=== PATIENT | female | born 1960 | race African-American/Black ===

== ENCOUNTER 2019-10-12 06:48 | Inpatient (IN) | payer MEDICARE ==
[2019-10-12] VITALS (31 sets, daily range): BP systolic 116–154; BP diastolic 65–93; BMI 28.7
[~2019-10-12] VITALS: Ht 160 cm; Wt 73.3 kg
--- NOTE | ~2019-10-12 | HEMODYNAMI ---
PATIENT:ABILIO NELSON MEDICAL RECORD: [id number] : 56 [facility] DATE: 10/12/19 Generatedon:10/13/201912:28 Patient name: ABILIO NELSON Patient #: [id number] SSN: : 1960 Date of study: 10/13/2019 Page: Of Hemodynamic Procedure Report Patient Data Patient Demographics Procedure consent was obtained First Name: ABILIO Gender: Female Last Name: OMAR : 1960 Patient #: [id number] Age: 58 year(s) Race: Black Additional ID: [id number] Contact details Address: [address] State: [facility] Zip code: [address] Past Medical History Allergies: No known allergies Admission Admission Data Admission Date: 10/12/2019 Admission Time: 7:46 Arrival Date: 10/12/2019 Arrival Time: 0:00 Admit Source: Emergency department Room #: D.08 Height (in.): 62.99 BSA: 1.81 (m2) Height (cm.): 160 BMI: 30.47 (kg/m2) Weight (lbs.): 171.96 Weight (kg.): 78 Lab Results Lab Result Date: 10/13/2019 Lab Result Time: 0:00 Biochemistry Name Units Result Min Max BUN mg/dl 8 --(*---)-- 7 18 Creatinine mg/dl 1 --(--*-)-- 0.6 1.3 eGFR ml/min 60 *-(----)-- 90 120 NONAFRICAN CBC Name Units Result Min Max Hematocrit % 38.2 *-(----)-- 42 54 Hemoglobin g/dl 12 *-(----)-- 13.5 17.5 Procedure Procedure Types Cath Procedure Diagnostic Procedure LHC LHC w/Coronaries Procedure Description Procedure Date Procedure Date: 10/13/2019 Procedure Start Time: 12:16 Procedure End Time: 12:27 Procedure Staff Name Function Demond Cherry MD Performing Physician Renetta Montilla RT Monitor Nadia Lopez RT Monitor Reyna Villagomez RN Nurse Keron Holden RT Scrub Indication NSTEMI Procedure Data Cath Procedure Fluoroscopy Diagnostic fluoroscopy Total fluoroscopy Time: 0.8 time: 0.8 min min Diagnostic fluoroscopy Total fluoroscopy dose: 463 dose: 463 mGy mGy Contrast Material Contrast Material Type Amount (ml) Isovue 300 60 Entry Location Entry Primary Successful Side Size Upsize Upsize Entry Closure Succes sful Closure Location (Fr) 1 (Fr) 2 (Fr) Remarks Device Remarks Femoral Left 5 Fr Exoseal artery Estimated blood loss: 5 ml Diagnostic catheters Device Type Used For End Catheter Placement MULTIPACK Pigtail 5 Fr Procedure catheter MULTIPACK JL 4.0 5Fr Procedure catheter MULTIPACK 3DRC 5Fr Procedure catheter Procedure Complications No complications Procedure Medications Medication Administration Route Dosage Oxygen etCO2 Nasal cannula 2 l/min Lidocaine 2% added to field 20 0.9% NaCl I.V. 100 ml/hr Heparin Flush Bag added to field 2 bags (1000units/500ml NS) Versed I.V. 2 mg Fentanyl I.V. 50 mcg Versed I.V. 1 mg Fentanyl I.V. 25 mcg Versed I.V. 0.5 mg Hemodynamics Rest BSA: 1.81 (m2) HGB: 12 (g/dl) O2 Consumption: Estimated: 189.23 (ml/min) O2 Cons umption indexed: Estimated:104.55 (ml/min/m) Heart Rate: 97 (bpm) Snapshots Pre Cath Intra NCS Post Cath Vital Signs Time Heart Resp SPO2 etCO2 NIBP (mmHg) Rhythm Pain Sedation Rate (ipm) (%) (mmHg) Status Level (bpm) 11:53:37 102 22 94 25.4 No Cuff NSR 0 (11) 10(A) , No pain 11:57:27 98 23 94 20.9 160/105(131) NSR 0 (11) 10(A) , No pain 12:01:49 93 23 94 25.4 164/103(133) NSR 0 (11) 10(A) , No pain 12:06:09 89 20 94 25.4 156/104(129) NSR 0 (11) 10(A) , No pain 12:10:25 85 21 96 0 149/97(136) NSR 0 (11) 10(A) , No pain 12:14:37 85 19 96 0 149/93(129) NSR 0 (11) 9(A) , No pain 12:18:51 83 20 95 0 145/96(125) NSR 0 (11) 9(A) , No pain 12:23:05 85 18 96 0 147/90(125) NSR 0 (11) 10(A) , No pain 12:27:05 0 No Cuff NSR 0 (11) 10(A) , No pain Medications Time Medication Route Dose Verified Delivered Reason Notes Eff ectiveness by by 12:03:23 Oxygen etCO2 2 Demond Bryantie used for Nasal l/min Dilip Villagomez RN procedure cannula 12:03:29 Lidocaine 2% added 20ml Demond Demond for local to vial Dilip Cherry MD anesthetic field 12:04:01 0.9% NaCl I.V. 100 Demond Bryantie used for ml/hr Dilip Villagomez RN procedure 12:06:22 Heparin Flush added 2 Demond Buffie used for Bag to bags Dilip Villagomez RN procedure (1000units/500ml field NS) 12:14:00 Versed I.V. 2 mg Demond Orellana for Dilip Villagomez RN sedation 12:14:32 Fentanyl I.V. 50 Demond Bryantie for mcg Dilip Villagomez RN sedation 12:17:23 Versed I.V. 1 mg Demond Orellana for Dilip Villagomez RN sedation 12:17:27 Fentanyl I.V. 25 Demond Orellana for mcg Dilip Villagomez RN sedation 12:21:33 Versed I.V. 0.5 Demond Bryantie for mg Dilip Villagomez RN sedation Procedure Log Time Note 11:37:26 Admit Source: Emergency department 11:38:16 Procedure Status Urgent Heart Cath (IP). 11:38:20 Keron TAVERAS(R) sent for patient. Start room use. 11:39:09 H&P Date Dictated: 10/13/2019 Within 30 days and on chart.. 11:39:17 Patient allergic to No known allergies 11:40:05 Lab Result : BUN 8 mg/dl 11:40:05 Lab Result : Creatinine 1 mg/dl 11:40:05 Lab Result : eGFR NONAFRICAN 60 ml/min 11:40:05 Lab Result : Hemoglobin 12 g/dl 11:40:05 Lab Result : Hematocrit 38.2 % 11:42:11 Stress Test: no; N/A NSTEMI 11:42:19 Risk of Mortality: 2.1 11:42:23 Risk of blood transfusion: 11.8 11:42:28 Risk of MOISÉS: 16.6 11:42:59 Indication : NSTEMI 11:43:23 Informed consent obtained and on chart 11:45:12 Patient Weight : 171.96 lbs 11:45:15 Patient Height : 62.99 inches 11:45:28 Arrival Date: 10/12/2019 12:00:00 AM 11:45:41 Diagnostic Cath Status : Urgent 11:45:42 PCI Cath Status : Urgent 11:48:09 Patient received from CVICU to CCL 1 Alert and oriented. Tansferred to table in Supine position. 11:48:12 Warm blankets applied, and magdy hugger turned on for patient comfort. 11:48:13 Correct patient and procedure confirmed by team. 11:48:14 ECG and BP/O2 sat monitors applied to patient. 11:52:47 Vital chart was started 11:52:50 Full Disclosure recording started 11:52:56 Pre-procedure instructions explained to patient. 11:52:57 Pre-op teaching completed and patient verbalized understanding. 11:52:59 Family in waiting room. 11:53:02 Patient NPO since Midnight. 11:53:05 Is the patient allergic to Iodine/contrast media? No. 11:53:06 Was the patient premedicated? Yes 11:53:07 Is patient on blood thinner?Yes 11:53:11 ACC The patient was administered the following blood thiners within the last 24 hours: ACCPlavix 11:53:13 Patient diabetic? No. 11:53:16 If diabetic: On Metformin? N/A 11:53:23 Patient not . Patient is over age 55. 11:53:28 Previous problem with sedation/anesthesia? No ? 11:53:30 Snore? No 11:53:32 Sleep apnea? No 11:53:34 Deviated septum? No 11:53:35 Opens mouth fully? Yes 11:53:36 Sticks out tongue? Yes 11:53:38 Airway obstruction? No ? 11:53:44 Dentures? No NONE 11:55:14 Pre procedure: right dorsailis pedis pulse 2+ Normal; easily identifiable; not easily obliterated 11:55:30 Patient pain scale 0/10 ?. 11:55:37 IV patent on arrival in right hand with 0.9% NaCl at [facility]. 11:55:45 Lab results completed and on chart. 11:55:50 Left groin area was prepped with chlora-prep and draped in sterile fashion 11:55:52 Alarms reviewed by R. N. 11:55:53 Sharps counted by scrub and verified by R.N. 11:56:29 Baseline sample Acquired. 11:56:36 Time tracking: Regular hours (M-F 7:00 - 5:00) 11:56:47 Plan of Care:Hemodynamics will remain stable., Cardiac rhythm will remain stable., Comfort level will be maintained., Respiratory function will remain adequate., Patient/ family verbilizes understanding of procedure., Procedure tolerated without complication., Recovers from procedure without complications.. 11:57:02 Use device set Femoral Dx 11:57:07 ACIST Syringe (15183) opened to sterile field. 11:57:09 Bag Decanter (2002S) opened to sterile field. 11:57:10 Medline Cath Pack ([id number]) opened to sterile field. 11:57:15 ACIST Hand Control (58015) opened to sterile field. 11:57:16 ACIST Manifold (95901) opened to sterile field. 11:57:17 Tegaderm 4 x 4 (1626W) opened to sterile field. 11:57:20 EMERALD Guide Wire (241-703) opened to sterile field. 11:57:21 SHEATH 5FR [place] (UIX543) opened to sterile field. 11:59:32 Rhythm: sinus rhythm 12:00:45 DIAGNOSTIC Multipack 5Fr catheter set ([id number]) opened to sterile field. 12:03:23 Oxygen 2 l/min etCO2 Nasal cannula was administered by Reyna Villagomez RN; used for procedure; Verbal order read back and verified. 12:03:29 Lidocaine 2% 20ml vial added to field was administered by Demond Cherry MD; for local anesthetic; Verbal order read back and verified. 12:04:01 0.9% NaCl 100 ml/hr I.V. was administered by Reyna Villagomez RN; used for procedure; Verbal order read back and verified. 12:04:19 PT IV IS IN RT HAND AND PT REQUESTED NOT TO GO RT GROIN DUE TO HIP PAIN WILL USE LT HIP INSTEAD. 12:06:22 Heparin Flush Bag (1000units/500ml NS) 2 bags added to field was administered by Reyna Villagomez RN; used for procedure; Verbal order read back and verified. 12:07:13 Zero performed for pressure channel P1 12:07:26 Zero performed for pressure channel P1 12:: --------ALL STOP TIME OUT------ 12:13:14 Final Timeout: patient, procedure, and site verified with staff and physician. All members of the team are in agreement. 12:13:16 Left groin site verified by team. 12:13:20 Fire Safety Assessment: A--An alcohol-based skin anteseptic being used preoperatively., C--Open oxygen or nitrous oxide is being used., D--An ESU, laser, or fiber-optic light is being used. 12:13:26 Physical assessment completed. ASA score P 2 - A patient with mild systemic disease as per Demond Cherry MD. 12:13:32 2) 60-89 Mildly reduced kidney function, and other findings (as for stage 1) point to kidney disease. 12:13:36 Maximum allowable contrast dose (3.7 X eGFR X 0.75)167 ml. 12:13:42 Sedation plan: IV Moderate Sedation Medication:Versed, Fentanyl 12:14:00 Versed 2 mg I.V. was administered by Reyna Villagomez RN; for sedation; Verbal order read back and verified. 12:14:32 Fentanyl 50 mcg I.V. was administered by Reyna Villagomez RN; for sedation; Verbal order read back and verified. 12:16:01 Procedure started. 12:16:53 Local anesthetic to left femerol artery with Lidocaine 2% by Demond Cherry MD.INITIAL ACCESS ONLY 12:17:23 Versed 1 mg I.V. was administered by Reyna Villagomez RN; for sedation; Verbal order read back and verified. 12:17:27 Fentanyl 25 mcg I.V. was administered by Reyna Villagomez RN; for sedation; Verbal order read back and verified. 12:17:46 A MULTIPACK Pigtail 5 Fr catheter was advanced over the wire and used for Procedure. 12:17:56 LV gram done using CHINO 12:18:08 Injector settings: Ml/sec: 10, Volume: 20, 12:18:14 EF : 40 % 12:18:22 Catheter exchanged over wire. 12:18:31 A MULTIPACK JL 4.0 5Fr catheter was advanced over the wire and used for Procedure. 12:19:14 LCA angiography performed. 12:19:49 Catheter removed. 12:19:55 A MULTIPACK 3DRC 5Fr catheter was advanced over the wire and used for Procedure. 12:20:16 RCA angiography performed. 12:20:45 Catheter removed. 12:21:00 EXOSEAL 5Fr (EX500) opened to sterile field. 12::18 A 5 Fr sheath was inserted into the Left Femoral artery 12::18 Sheath removed intact; hemostasis achieved with Exoseal to the Left Femoral artery. 12::33 Versed 0.5 mg I.V. was administered by Reyna Villagomez RN; for sedation; Verbal order read back and verified. 12:21:43 Procedure ended.(Physican Out) 12::19 ACCDominant side:Co-Dominant 12::33 Fluoroscopy time 00.80 minutes. 12::45 Flurop Dose total: 463 12::45 Fluoroscopy dose: 463 mGy 12:22:52 Dose Area Product 69055 mGy/cm. 12:22:56 Contrast amount:Isovue 300 60ml. 12::59 Maximum allowable dose exceeded? No. 12:23:00 Sharps counted by scrub and verified by R.N. 12:23:11 Post Procedure Pulses reassessed and unchanged 12:23:15 Post procedure: right dorsailis pedis pulse 2+ Normal; easily identifiable; not easily obliterated. 12:23:20 Post-procedure physical assessment completed. ASA score P 2 - A patient with mild systemic disease as per Demond Cherry MD. 12:23:23 Post procedure rhythm: unchanged. 12:23:26 Estimated blood loss: 5 ml 12:23:29 Post procedure instruction explained to patient.Patient verbalizes understanding. 12:23:31 Patient needs reinforcement of post procedure teaching. 12:23:58 Procedure and supply charges have been captured, reviewed, submitted and are correct. 12:26:30 Procedure Complication : No complications 12:26:32 Vital chart was stopped 12:26:34 [facility] Findings: MVD- CABG consult 12:26:37 Operative report dictated upon procedure completion. 12:26:38 See physician's report for complete and final results. 12:26:57 Report given to CVICU. 12:27:02 Patient transfered to CVICU with Bed. 12:27:05 Procedure ended. 12:27:05 Full Disclosure recording stopped 12:27:58 End room use (Document Last) Device Usage Item Name Manufacture Quantity Catalog Hospital Part Current Minimal L ot# / Number Charge Number Stock Stock Serial# Code ACIST Acist 1 16709 [id number] [id number] 20 Syringe Medical (97815) Systems Inc Bag Microtek 1 2001S 161551 28978 783156 5 Decanter Medical Inc. () Medline Medline 1 [id number] 506618 17731 372220 5 Cath Pack ([id number]) ACIST Hand Acist 1 91851 207585 086082 397428 5 Control Medical (36753) Systems Inc ACIST Acist 1 93132 524447 615161 635237 5 Manifold Medical (03764) Systems Inc Tegaderm 4 3M 1 1626W 561914 200840 249873 5 x 4 (1626W) EMERALD Cardinal 1 502-455 495110 035358 708951 5 Guide Wire Health (502-455) SHEATH 5FR Terumo 1 OCY660 507538 730216 284529 5 [place] (GFE689) DIAGNOSTIC Cardinal 1 FH8717 912663 55864 157493 30 Multipack Health 5Fr catheter set (NV2830) MULTIPACK Cardinal 1 400858 5 Pigtail 5 Health Fr catheter MULTIPACK Cardinal 1 467337 5 JL 4.0 5Fr Health catheter MULTIPACK Cardinal 1 692368 5 3DRC 5Fr Health catheter EXOSEAL 5Fr Cardinal 1 EX500 557423 657996 143553 10 (EX500) Health Signature Audit [place] Stage Time Signature Unsigned Intra-Procedure 10/13/2019 Nadia Lopez 12:27:29 PM RT(R) Intra-Procedure 10/13/2019 Reyna Villagomez RN 12:27:52 PM Intra-Procedure 10/13/2019 Demond Cherry 12:28:12 PM [facility] [address] [facility] [facility] [place] [address]
--- NOTE | ~2019-10-12 | HEMODYNAMI ---
PATIENT:DENA NELSON MEDICAL RECORD: [id number] : 56 [id number] ADMISSION DATE: 10/12/19 Generatedon:10/14/201916:04 Patient name: DENA NELSON Patient #: [id number] SSN: [id number] : 1960 Date of study: 10/14/2019 Page: Of Hemodynamic Procedure Report Patient Data Patient Demographics Procedure consent was obtained First Name: DENA Gender: Female Last Name: OMAR : 1960 Patient #: [id number] Age: 58 year(s) Race: Black SSN: [id number] Additional ID: [id number] Contact details Address: [address] State: [facility]: [place] Zip code: [address] Past Medical History Allergies: No known allergies Admission Admission Data Admission Date: 10/12/2019 Admission Time: 7:46 Arrival Date: 10/12/2019 Arrival Time: 0:00 Admit Source: Emergency Insurance Payor: Medicare department [facility] #: [id number] Room #: D.CV08 Height (in.): 62.99 BSA: 1.81 (m2) Height (cm.): 160 BMI: 30.47 (kg/m2) Weight (lbs.): 171.96 Weight (kg.): 78 Lab Results Lab Result Date: 10/13/2019 Lab Result Time: 0:00 Biochemistry Name Units Result Min Max BUN mg/dl 8 --(*---)-- 7 18 Creatinine mg/dl 1 --(--*-)-- 0.6 1.3 eGFR ml/min 60 *-(----)-- 90 120 NONAFRICAN CBC Name Units Result Min Max Hematocrit % 38.2 *-(----)-- 42 54 Hemoglobin g/dl 12 *-(----)-- 13.5 17.5 Procedure Procedure Types Cath Procedure Diagnostic Procedure Intra-Aortic Balloon Pump Sedation Charges Moderate Sedation up to 15 minutes Procedure Description Procedure Date Procedure Date: 10/14/2019 Procedure Start Time: 15:37 Procedure Staff Name Function Oscar Sanchez MD Performing Physician Maura Gardiner RT Monitor Felecia Caputo RT Scrub Dena Mccall RT Scrub Reyna Villagomez RN Nurse Procedure Data Cath Procedure Fluoroscopy Diagnostic fluoroscopy Total fluoroscopy Time: 2.1 time: 2.1 min min Diagnostic fluoroscopy Total fluoroscopy dose: 109 dose: 109 mGy mGy Contrast Material Contrast Material Type Amount (ml) Isovue 300 0 Entry Location Entry Primary Successful Side Size Upsize Upsize Entry Closure Succes sful Closure Location (Fr) 1 (Fr) 2 (Fr) Remarks Device Remarks Femoral Right 7 Fr Sheath artery Short sutured in place Estimated blood loss: 5 ml Procedure Complications No complications Procedure Medications Medication Administration Route Dosage Oxygen NC 4 l/min Lidocaine 2% added to field 20 Heparin Flush Bag added to field 2 bags (1000units/500ml NS) 0.9% NaCl I.V. 50 ml/hr Versed I.V. 1 mg Fentanyl I.V. 50 mcg Versed I.V. 1 mg Fentanyl I.V. 50 mcg Versed I.V. 1 mg Versed I.V. 1 mg Mechanical Ventricular Support IABP: Inserted during procedure and prior to PCI Hemodynamics Rest BSA: 1.81 (m2) HGB: 12 (g/dl) O2 Consumption: Estimated: 187.34 (ml/min) O2 Cons umption indexed: Estimated:103.5 (ml/min/m) Heart Rate: 94 (bpm) Snapshots Pre Cath Intra NCS Post Cath Vital Signs Time Heart Resp SPO2 etCO2 NIBP (mmHg) Rhythm Pain Sedation Rate (ipm) (%) (mmHg) Status Level (bpm) 15:23:56 90 17 99 0 142/93(118) NSR 0 (11) 10(A) , No pain 15:28:52 85 14 98 0 139/90(115) NSR 0 (11) 10(A) , No pain 15:33:02 76 12 97 0 139/85(113) NSR 0 (11) 9(A) , No pain 15:37:13 83 13 98 0 129/82(99) NSR 0 (11) 9(A) , No pain 15:41:23 81 13 98 0 128/79(104) NSR 0 (11) 9(A) , No pain 15:45:39 79 15 97 0 109/56(93) NSR 0 (11) 9(A) , No pain 15:49:47 78 13 0 98/64(93) NSR 0 (11) 10(A) , No pain 15:53:47 79 13 0 111/72(97) NSR 0 (11) 10(A) , No pain 15:58:46 0 Measuring NSR 0 (11) 10(A) , No pain 15:59:43 0 96/70(90) NSR 0 (11) 10(A) , No pain Medications Time Medication Route Dose Verified Delivered Reason Notes Effe ctiveness by by 15:20:58 0.9% NaCl I.V. 50 Oscar Buffie Per ml/hr Daniel Villagomez RN physician 15:25:49 Oxygen NC 4 Oscar Buffie used for l/min Daniel Villagomez RN procedure 15:27:05 Lidocaine 2% added 20ml Oscar Oscar for local to vial Daniel Sanchez MD anesthetic field 15:27:10 Heparin Flush added 2 Oscar Oscar used for Bag to bags Daniel Sanchez MD procedure (1000units/500ml field NS) 15:27:21 Versed I.V. 1 mg Oscar Buffie for Daniel Villagomez RN sedation 15:27:26 Fentanyl I.V. 50 Oscar Buffie for mcg Daniel Villagomez RN sedation 15:32:56 Versed I.V. 1 mg Oscar Buffie for Daniel Villagomez RN sedation 15:32:59 Fentanyl I.V. 50 Oscar Buffie for mcg Daniel Villagomez RN sedation 15:38:00 Versed I.V. 1 mg Oscar Buffie for Daniel Villagomez RN sedation 15:44:54 Versed I.V. 1 mg Oscar Buffie for Daniel Villagomez RN sedation Procedure Log Time Note 14:52:16 Informed consent obtained and on chart 14:52:19 Patient Weight : 171.96 lbs 14:52:19 Patient Height : 62.99 inches 14:52:20 Diagnostic Cath Status : Elective 14:52:51 IABP : Inserted during procedure and prior to PCI 14:53:07 Insurance Payor : Medicare 14:53:39 Procedure Status PPM/ Gen Change/ Lead Revision/ Temp. 14:53:43 Reyna Villagomez RN sent for patient. Start room use. 14:53:43 Time tracking: Regular hours (M-F 7:00 - 5:00) 14:53:49 Plan of Care:Hemodynamics will remain stable., Cardiac rhythm will remain stable., Comfort level will be maintained., Respiratory function will remain adequate., Patient/ family verbilizes understanding of procedure., Procedure tolerated without complication., Recovers from procedure without complications.. 14:57:58 Use device set IABP 14:58:02 IABP 34cm balloon catheter ([id number]) opened to sterile field. 14:58:03 TUBING High Pressure Extension (IABP) opened to sterile field. 14:58:07 2-0 Silk 685H opened to sterile field. 14:58:08 ART Line (PX260) opened to sterile field. 14:58:34 Use device set Acist 14:58:36 ACIST Syringe (97984) opened to sterile field. 14:58:37 ACIST Hand Control (94706) opened to sterile field. 14:58:37 ACIST Manifold (59569) opened to sterile field. 14:58:45 SHEATH 7FR Piercy (BBP079) opened to sterile field. 15:10:08 Patient received from CVICU to CCL 2 Alert and oriented. Tansferred to table in Supine position. 15:10:10 Warm blankets applied, and magdy hugger turned on for patient comfort. 15:10:10 Correct patient and procedure confirmed by team. 15:10:11 ECG and BP/O2 sat monitors applied to patient. 15:20:58 0.9% NaCl 50 ml/hr I.V. was administered by Reyna Villagomez RN; Per physician; Verbal order read back and verified. 15:22:56 Vital chart was started 15:22:57 Baseline sample Acquired. 15:23:03 Rhythm: sinus tachycardia 15:23:10 Full Disclosure recording started 15:23:15 H&P Date Dictated: 10/14/2019 Within 30 days and on chart.. 15:23:17 Pre-procedure instructions explained to patient. 15:23:17 Pre-op teaching completed and patient verbalized understanding. 15:23:19 Family in patients room. 15:24:20 Patient NPO since Midnight. 15:24:33 Is the patient allergic to Iodine/contrast media? No. 15:24:35 Was the patient premedicated? No 15:25:17 Is patient on blood thinner?Yes 15:25:19 ACC The patient was administered the following blood thiners within the last 24 hours: ACCPlavix 15:25:21 Patient diabetic? No. 15:25:23 Previous problem with sedation/anesthesia? No ? 15:25:26 Snore? No 15:25:27 Sleep apnea? No 15:25:27 Deviated septum? No 15:25:28 Opens mouth fully? Yes 15:25:29 Sticks out tongue? Yes 15:25:30 Airway obstruction? No ? 15:25:33 Dentures? No ? 15:25:35 Pre procedure: right dorsailis pedis pulse 1+ Palpable, but thready & weak; easily obliterated 15:25:37 Pre procedure: left dorsailis pedis pulse 1+ Palpable, but thready & weak; easily obliterated 15:25:40 Patient pain scale 0/10 ?. 15:25:49 Oxygen 4 l/min NC was administered by Reyna Villagomez RN; used for procedure; Verbal order read back and verified. 15:25:58 IV patent on arrival in right forearm with 0.9% NaCl at [facility]. 15:26:03 Lab results completed and on chart. 15:26:10 Right groin area was prepped with chlora-prep and draped in sterile fashion 15:26:11 Alarms reviewed by R. N. 15:26:11 Sharps counted by scrub and verified by R.N. 15:26:12 Physician arrived 15:26:13 --------ALL STOP TIME OUT------ 15:26:13 Final Timeout: patient, procedure, and site verified with staff and physician. All members of the team are in agreement. 15:26:16 Right groin site verified by team. 15:26:19 Fire Safety Assessment: A--An alcohol-based skin anteseptic being used preoperatively., C--Open oxygen or nitrous oxide is being used., D--An ESU, laser, or fiber-optic light is being used. 15:26:23 Physical assessment completed. ASA score P 2 - A patient with mild systemic disease as per Oscar Sanchez MD. 15:26:29 Sedation plan: IV Moderate Sedation Medication:Versed, Fentanyl 15:27:05 Lidocaine 2% 20ml vial added to field was administered by Oscar Sanchez MD; for local anesthetic; Verbal order read back and verified. 15:27:10 Heparin Flush Bag (1000units/500ml NS) 2 bags added to field was administered by Oscar Sanchez MD; used for procedure; Verbal order read back and verified. 15:27:21 Versed 1 mg I.V. was administered by Reyna Villagomez RN; for sedation; Verbal order read back and verified. 15:27:26 Fentanyl 50 mcg I.V. was administered by Reyna Villagomez RN; for sedation; Verbal order read back and verified. 15:28:38 2) 60-89 Mildly reduced kidney function, and other findings (as for stage 1) point to kidney disease. 15:32:16 Maximum allowable contrast dose (3.7 X eGFR X 0.75)213 ml. 15:32:56 Versed 1 mg I.V. was administered by Reyna Villagomez RN; for sedation; Verbal order read back and verified. 15:32:59 Fentanyl 50 mcg I.V. was administered by Reyna Villagomez RN; for sedation; Verbal order read back and verified. 15:37:06 Local anesthetic to right femoral artery with Lidocaine 2% by Oscar Sanchez MD.INITIAL ACCESS ONLY 15:38:00 Versed 1 mg I.V. was administered by Reyna Villagomez RN; for sedation; Verbal order read back and verified. 15:38:09 A 7 Fr Short sheath was inserted into the Right Femoral artery 15:38:56 34cc IABP inserted into the RFA . 15:43:27 Augmentation: 1:1 per physician. 15:44:45 Sheath removed intact; hemostasis achieved with Sheath sutured in place to the Right Femoral artery. 15:44:48 Procedure ended.(Physican Out) 15:44:54 Versed 1 mg I.V. was administered by Reyna Villagomez RN; for sedation; Verbal order read back and verified. 15:50:24 Tegaderm 4 x 4 (1626W) opened to sterile field. 15:50:25 Tegaderm 4 x 4 (1626W) opened to sterile field. 15:58:40 Fluoroscopy time 02.10 minutes. 15:58:44 Fluoroscopy dose: 109 mGy 15:58:44 Flurop Dose total: 109 15:58:51 Dose Area Product 88381 mGy/cm. 15:58:54 Contrast amount:Isovue 300 0ml. 15:58:56 Maximum allowable dose exceeded? No. 15:58:57 Sharps counted by scrub and verified by R.N. 15:58:59 Insertion/operative site no bleeding no hematoma. 15:59:08 Post procedure rhythm: unchanged. 15:59:10 Estimated blood loss: 5 ml 15:59:12 Post procedure instruction explained to patient.Patient verbalizes understanding. 15:59:13 Patient needs reinforcement of post procedure teaching. 15:59:28 Procedure type changed to Cath procedure, Diagnostic procedure, Intra-Aortic Balloon Pump, Sedation Charges, Moderate Sedation up to 15 minutes 16:00:02 Procedure and supply charges have been captured, reviewed, submitted and are correct. 16:00:06 Procedure Complication : No complications 16:00:10 Vital chart was stopped 16:00:13 Operative report dictated upon procedure completion. 16:00:14 See physician's report for complete and final results. 16:00:20 Report given to CVICU. 16:01:21 Patient transfered to CVICU with Stretcher. 16:01:29 End room use (Document Last) 16:02:24 End room use (Document Last) Device Usage Item Name Manufacture Quantity Catalog Number [facility] Lot# / Charge Number Stock Stock Serial# Code IABP 34cm [facility] 1 [id number] [id number] 535398 [id number] 1 balloon [employer]ing catheter ([id number]) ([id number]) TUBING [employer] 1 [id number] 026259 595335 0 5 Pressure Medical Extension (IABP) 2-0 Silk 685H Ethicon 1 685H 827600 17538 139863 5 ART Line Vasquez 1 PX260 273771 17187 184558 5 (PX260) Lifesciences ACIST Syringe Acist 1 50741 760447 137878 713605 20 (24360) [employer] ACIST Hand Acist 1 75180 424295 856926 062207 5 Control (67723) [employer] ACIST Manifold Acist 1 74497 734251 337282 129166 5 (61284) [employer] Systems [employer] SHEATH 7FR Terumo 1 [id number] 002133 299793 435074 5 Piercy (CJX616) Tegaderm 4 x 4 3M 2 1626W 028743 502966 948291 5 (1626W) Signature Audit [place] Stage Time Signature Unsigned Intra-Procedure 10/14/2019 Maura Gardiner 4:02:24 PM RT(R) Intra-Procedure 10/14/2019 Reyna Villagomez RN 4:02:50 PM Intra-Procedure 10/14/2019 Oscar Sanchez MD 4:03:59 PM Signatures Performing Physician : Signature : Oscar Sanchez MD Date : Time : Monitor : Maura Gardiner RT Signature : Date : Time : Nurse : Reyna Villagomez RN Signature : Date : Time : [address] [place] [address]
[2019-10-12] MEDS ORDERED: HYDROCHLOROTHIA25 MG PO (06:54)
[2019-10-12] MEDS ORDERED: EFFER-K 25 MEQ25 MEQ PO (06:54)
[2019-10-12] MEDS ORDERED: ASPIRIN325 MG PO (06:54)
[2019-10-12] MEDS ORDERED: IBUPROFEN800 MG PO (06:55)
[2019-10-12] MEDS ORDERED: PROTONIX40 MG PO (06:55)
[2019-10-12] MEDS ORDERED: ELAVIL25 MG PO (06:55)
--- NOTE | 2019-10-12 07:10 | NUR ---
ASSUMED CARE OF PT. RESTING IN BED, NO C/.O
--- NOTE | 2019-10-12 07:20 | NUR ---
PT ARRIVED WITH LEE GTT INFUSING @ 5 MCG/MIN (1.5 ML/HR) . SPOKE WITH DR PETERSON AND ORDER RCVD TO CONTINUE NITRO GTT.
--- NOTE | 2019-10-12 07:52 | NUR ---
RCVD TC FROM LAB, CRITICAL TROPONIN 5.128 DR PETERSON NOTIFIED
--- NOTE | 2019-10-12 08:10 | NUR ---
REPORT TO ADINA MAGUIRE
[2019-10-12 08:14] LABS: CALC OSMOLALITY 290 mosm/kg (275-300); CALCIUM 8.9 mg/dL (8.5-10.1); CHLORIDE - SERUM 107 mmol/L (98-107); CKMB 29.2 U/L (0.0-3.6); CREATINE KINASE 286 UL (21-215); CREATININE - SERUM 0.8 mg/dL (0.6-1.3); GLUCOSE 111 mg/dL (74-106); SODIUM 147 mmol/L (136-145); UREA NITROGEN 7 mg/dL (7-18); eGFR NON AFRICAN AMERICAN 77 mL/min (90-120)
--- NOTE | 2019-10-12 11:40 | NUR ---
LUNCH TRAY PROVIDED. PT AWAKE MAY EAT TODAY, PLAN FOR DRY WALL APPLICATOR TOMORROW.
--- NOTE | 2019-10-12 14:05 | NUR ---
PT C/O RIGHT SHOULDER PAIN GOING UP TO HER NECK. ICE PACK PROVIDED ALONG WITH PAIN MEDICATION. CONSENTS OBTAINED FOR CATHLAB TOMORROW.
--- NOTE | 2019-10-12 14:08 | NUR ---
HEART CATH AND BLOOD CONSENTS OBTAINED ORDERED WITH SECOND NURSE WITNESS. ALL QUESTIONS ANSWERED.
--- NOTE | 2019-10-12 14:58 | NUR ---
PT LAYING IN BED ASLEEP, O2 SAT DOWN TO 88%, APPLIED 2L O2 VIA NC. O2 SAT NOW 93%. WILL CONT TO FOLLOW POC
--- NOTE | 2019-10-12 16:00 | NUR ---
ASSISTED PT TO BATHROOM AND BACK TO BED. VSS AND WNL. DENIES ANY NEEDS AT THIS TIME, SCDS IN PLACE. WILL CONT TO FOLLOW POC
--- NOTE | 2019-10-12 16:58 | NUR ---
PT SITTING ON SIDE OF BED WITH DINNER TRAY, DENIES ANY NEEDS AT THIS TIME, CALL LIGHT WITHIN REACH. WILL CONT TO FOLLOW POC
--- NOTE | 2019-10-12 18:30 | NUR ---
PT RESTING IN BED, VSS AND WNL. CALL LIGHT WITHIN REACH. DENIES ANY NEEDS AT THIS TIME, WILL CONT TO FOLLOW POC
--- NOTE | 2019-10-12 19:00 | NUR ---
PT REPORT RECEIVED FROM DAY SHIFT NURSE. NO COMPLAINTS NOTED AT THIS TIME. VSS. SHIFT ASSESSMENT COMPLETED. WILL CONTINUE TO MONITOR
--- NOTE | 2019-10-12 19:01 | MORECARE ---
CASE MANAGEMENT DISCHARGE SUMMARY PATIENT: ABILIO AMAYA UNIT: [id number] ADM DATE: 10/12/19 AGE: 58 : 56 SEX: F ROOM/BED: [facility] AUTHOR: BRIANDA MOTT PHYSICIAN: REFERRING PHYSICIAN: LUCAS SILVA MD DATE OF SERVICE: 10/12/19 Discharge Plan Patient Name: ABILIO AMAYA [facility] [facility] 1960 Planned Disposition: Home or Self Care Anticipated Discharge Date: Discharge Date: Expected LOS: Initial Reviewer: [email or web address] Initial Review Date: 10/12/2019 Generated: 10/12/19 8:01 pm DCPIA - Discharge Planning Initial Assessment Updated by [email or web address]: Surekha Hollis on 10/12/19 6:59 pm * Is the patient Alert and Oriented? Yes * How many steps to enter\exit or inside your home? * PCP Garret Winter * Pharmacy [facility] * Preadmission Environment Home with Family * ADLs Independent * Other Equipment cane, walker, BSC * List name and contact numbers for known caregivers / representatives who currently or will assist patient after discharge: Jermaine Monsalve [facility] - [phone] Jermaine Amaya hu [phone] * Verbal permission to speak to the caregivers and representatives has been obtained from the patient. Yes * Community resources currently utilized None * Additional services required to return to the preadmission environment? No * Can the patient safely return to the preadmission environment? Yes * Has this patient been hospitalized within the prior 30 days at any hospital? No Patient Name: ABILIO AMAYA Page [phone] at 1901 All edits/amendments must be made on the electronic document DICTATION DATE: 10/12/191900 STRUCTURAL STEEL PAINTER: JABIER 10/12/191900 RPT#: [id number] DC DATE: STATUS: ADM IN [facility] [address] [place] [address] END OF REPORT
--- NOTE | 2019-10-12 19:08 | MORECARE ---
CASE MANAGEMENT DISCHARGE SUMMARY PATIENT: ABILIO AMAYA UNIT: [id number] ADM DATE: 10/12/19 AGE: 58 : 56 SEX: F ROOM/BED: [facility] AUTHOR: PANTERA,DOC PHYSICIAN: REFERRING PHYSICIAN: LUCAS SILVA MD DATE OF SERVICE: 10/12/19 Discharge Plan Patient Name: ABILIO AMAYA Facility: [facility]:[place] : 1960 Planned Disposition: Home or Self Care Anticipated Discharge Date: Discharge Date: Expected LOS: Initial Reviewer: [email or web address] Initial Review Date: 10/12/2019 Generated: 10/12/19 8:08 pm Comments DCP- Discharge Planning Updated by [email or web address]: Surekha Hollis on 10/12/19 6:[address] Patient Name: ABILIO AMAYA Admission Status: Elective Accout number: [id number] Admission Date: 10-12-2019 : 1960 Admission Diagnosis: Attending: LUCAS SILVA Current LOS: 1 Anticipated DC Date: Planned Disposition: Home or Self Care Primary Insurance: [facility] [employer] Discharge Planning Comments: CM met with patient to complete initial dc planning assessment. CM educated patient on the CM role and verbal consent given by patient to complete assessment. Patient lives at home alone where she is independent with her care. At discharge patient plans to return home and feels this is a safe discharge. CM discussed availability of home health, rehab services, and medical equipment. Patient denied known discharge needs at this time. CM will continue to follow and will assist as needed with dc plans/needs. Director Institution: Surekha Hollis DCPIA - Discharge Planning Initial Assessment Updated by [email or web address]: Surekha Hollis on 10/12/19 6:59 pm * Is the patient Alert and Oriented? Yes * How many steps to enter\exit or inside your home? * PCP Garret Winter * Pharmacy [facility] in [place] * Preadmission Environment Home with Family * ADLs Independent * Other Equipment cane, walker, BSC * List name and contact numbers for known caregivers / representatives who currently or will assist patient after discharge: Jermaine Bello - [facility] - [phone] Jermaine Amaya - [facility] - [phone] * Verbal permission to speak to the caregivers and representatives has been obtained from the patient. Yes * Community resources currently utilized None * Additional services required to return to the preadmission environment? No * Can the patient safely return to the preadmission environment? Yes * Has this patient been hospitalized within the prior 30 days at any hospital? No Last DP export: 10/12/19 6:01 Patient Name: ABILIO AMAYA Page [phone] at 1908 All edits/amendments must be made on the electronic document DICTATION DATE: 10/12/191906 CORSETIER: JABIER 10/12/191906 RPT#: [id number] DC DATE: STATUS: ADM IN [facility] [address] [place] [address] END OF REPORT
--- NOTE | 2019-10-12 21:00 | NUR ---
PT RESTING IN BED. NO COMPLAINTS NOTED AT THIS TIME. NO VISIBLE SIGNS OF DISTRESS NOTED. REINFORCED NPO AT MIDNIGHT STATUS WITH PT. WILL CONTINUE TO MONITOR
--- NOTE | 2019-10-12 23:00 | NUR ---
PT RESTING IN BED. REASSESSMENT COMPLETED. NO COMPLAINTS NOTED AT THIS TIME. NO VISIBLE SIGNS OF DISTRESS NOTED. VSS. WILL CONTINUE TO MONITOR
[2019-10-13] VITALS (60 sets, daily range): BP systolic 117–168; BP diastolic 67–100; Ht 160 cm; Wt 73.3 kg
--- NOTE | 2019-10-13 01:00 | NUR ---
PT ASLEEP IN ROOM. AROUSES EASILY. NO VISIBLE SIGNS OF DISTRESS NOTED. VSS. WILL CONTINUE TO MONITOR
--- NOTE | 2019-10-13 03:00 | NUR ---
PT RESTING IN BED. AROUSES EASILY. REASSESSMENT COMPLETED AT THIS TIME. NO VISIBLE SIGNS OF DISTRESS NOTED. WILL CONTINUE TO MONITOR
[2019-10-13 04:27] LABS: BASOPHILS 0.3 % (0-2); EOSINOPHILS 5.5 % (0-7); HEMATOCRIT 38.2 % (36.0-48.0); IMMATURE GRANULOCYTES 0.1 % (0-5); LYMPHOCYTES 47.2 % (15-50); MCH 26.8 pg (26.0-34.0); MCHC 31.4 g/dL (31.0-37.0); MCV 85.3 fL (80.0-100.0); MEAN PLATELET VOLUME 10.2 fL (7.4-10.4); MONOCYTES 9.3 % (2-11); NEUTROPHILS 37.6 % (40-80); PLATELET COUNT 295 10x3/uL (130-400); RBC 4.48 10x6/uL (4.00-5.40); RDW 15.5 % (11.5-14.5); WBC 6.7 10x3/uL (4.8-10.8)
--- NOTE | 2019-10-13 05:00 | NUR ---
PT RESTING IN BED. PREPARING ITEMS FOR CHG BATH. VSS. NO COMPLIANTS NOTED AT THIS TIME. WILL CONTINUE TO MONITOR
[2019-10-13 05:10] LABS: ALBUMIN 2.8 g/dL (3.4-5.0); ALKALINE PHOSPHATASE 92 U/L (46-116); ALT (SGPT) 28 U/L (10-68); BILIRUBIN - TOTAL 0.48 mg/dL (0.2-1.3); CALC OSMOLALITY 280 mosm/kg (275-300); CARBON DIOXIDE 29.4 mmol/L (21.0-32.0); CHLORIDE - SERUM 108 mmol/L (98-107); CKMB 11.5 U/L (0.0-3.6); CREATINE KINASE 181 UL (21-215); GLUCOSE 90 mg/dL (74-106); MAGNESIUM - SERUM 1.8 mg/dL (1.8-2.4); POTASSIUM - SERUM 3.5 mmol/L (3.5-5.1); PROTEIN - SERUM 6.1 g/dL (6.4-8.2); SODIUM 142 mmol/L (136-145); UREA NITROGEN 8 mg/dL (7-18); eGFR NON AFRICAN AMERICAN 60 mL/min (90-120)
[2019-10-13 05:11] LABS: TROPONIN-I 4.411 ng/mL (0.000-0.060)
--- NOTE | 2019-10-13 06:40 | NUR ---
PT GIVEN CHG BATH. OLD PIV IN LEFT WRIST DISCONTINUED. NEW PIV STARTED IN RT FOREARM.
--- NOTE | 2019-10-13 08:57 | NUR ---
0700 PT RECIEVED ALERT AND ORIENTED VSS O2 2L NC, RFA PIV DRESSING CDI, SEE IV FLOWSHEET, DENIES PAIN AND ALL NEEDS 0845 AM MEDS GIVEN WITH SIP OF WATER, DENIES ALL NEEDS
--- NOTE | 2019-10-13 12:41 | NUR ---
1130 PT TO CATHLAB 1230 BACK FROM BACK TUFTER, DR SIMONS NURSE NOTIFIED OF CONSULT
--- NOTE | 2019-10-13 14:00 | NUR ---
PT AWAKE, FOLLOWING COMMANDS, HAS CELLPHONE AND IS UPDATING FAMILY
--- NOTE | 2019-10-13 16:04 | NUR ---
[address] HUDSON, SAT UP EATING SHE WAS TOLD TO BE FLAT 2 HOURS FROM 1230, THEN WAS ASSISTED TO BATHROOM, UPON GETTING BACK INTO BED PT BEGAN COMPLAINING OF LLE/ABD PAIN, SITE SOFT TO PALPATE, NO BRUISING NOTED, PULSES PALPABLE, COMPARED L GROIN AND R GROIN WITH MAYBE SMALL AMOUNT OF FIRMNESS TO LLQ ABD, ANOTHER NURSE ASSESSED SITE, PAGED TAUCHILO AND CALLED ESCORT BLIND, ESCORT BLIND NURSE CAME TO UNIT TO ASSESS AND THEN LOCK PLATER ALSO TO ASSESS,CALLED DR HUDSON WITH ORDERS FOR ULTRASOUND, NURSING UNIT COORDINATOR IN ROOM AND AWAITING DR HUDSON TO START REQUESTED
[2019-10-13 16:44] LABS: HEMATOCRIT 39.3 % (36.0-48.0); HEMOGLOBIN 12.5 g/dL (12-16)
[2019-10-13 17:22] LABS: INR 1.12 (0.85-1.17); PROTIME 13.9 SECONDS (11.6-15.0)
[2019-10-13 17:23] LABS: APTT 29.9 SECONDS (22.8-39.4)
--- NOTE | 2019-10-13 17:28 | NUR ---
CT RESULTS CALLED TO DR HUDSON ORDERS FOR NITRO GTT AND LABS Q6, PAGED DR RENTERIA TO NOTIFY, AWAITING CALL BACK. RECIEVED CALL FROM PTS SON, PT OKAYED TO UPDATE HIM, UPDATE PROVIDED, WILL CONTINUE TOMONITOR
--- NOTE | 2019-10-13 17:58 | MORECARE ---
CASE MANAGEMENT DISCHARGE SUMMARY PATIENT: ABILIO AMAYA UNIT: [id number] ADM DATE: 10/12/19 AGE: 58 : 56 SEX: F ROOM/BED: D[facility] AUTHOR: PANTERA,DOC PHYSICIAN: REFERRING PHYSICIAN: LUCAS SILVA MD DATE OF SERVICE: 10/13/19 Discharge Plan Patient Name: ABILIO AMAYA Facility: [facility]:[place] : 1960 Planned Disposition: Home or Self Care Anticipated Discharge Date: Discharge Date: Expected LOS: Initial Reviewer: [email or web address] Initial Review Date: 10/12/2019 Generated: 10/13/19 6:58 pm Comments DCP- Discharge Planning Updated by [email or web address]: Surekha Hollis on 10/13/19 4:[address] CM spoke with patient and had requested a letter sent to her son Jermaine Amaya d/t her suppose to fly out on Saturday to be with him for the Holidays. Patient will not be able to fly d/t to medical condition. CM sent letter and a copy of letter placed in chart. CM will continue to follow and assist as needed with discharge planning / needs DCP- Discharge Planning Updated by [id number]: Surekha Hollis on 10/12/19 6:[address] Patient Name: ABILIO AMAYA Admission Status: Elective Accout number: [id number] Admission Date: 10-12-2019 : 1960 Admission Diagnosis: Attending: LUCAS SILVA Current LOS: 1 Anticipated DC Date: Planned Disposition: Home or Self Care Primary Insurance: [facility] [employer] Discharge Planning Comments: CM met with patient to complete initial dc planning assessment. CM educated patient on the CM role and verbal consent given by patient to complete assessment. Patient lives at home alone where she is independent with her care. At discharge patient plans to return home and feels this is a safe discharge. CM discussed availability of home health, rehab services, and medical equipment. Patient denied known discharge needs at this time. CM will continue to follow and will assist as needed with dc plans/needs. Emergency Dispatcher: Surekha Hollis DCPIA - Discharge Planning Initial Assessment Updated by [email or web address]: Surekha Hollis on 10/12/19 6:59 pm * Is the patient Alert and Oriented? Yes * How many steps to enter\exit or inside your home? * PCP Garret Winter * Pharmacy [facility] * Preadmission Environment Home with Family * ADLs Independent * Other Equipment venice poole, BSC * List name and contact numbers for known caregivers / representatives who currently or will assist patient after discharge: Jermaine Monsalve - son - [phone] Jermaine Amaya - son - [phone] * Verbal permission to speak to the caregivers and representatives has been obtained from the patient. Yes * Community resources currently utilized None * Additional services required to return to the preadmission environment? No * Can the patient safely return to the preadmission environment? Yes * Has this patient been hospitalized within the prior 30 days at any hospital? No Last DP export: 10/12/19 6:08 Patient Name: ABILIO AMAYA Page [id number] at 1758 All edits/amendments must be made on the electronic document DICTATION DATE: 10/13/191757 TOW BOAT CAPTAIN: JABIER 10/13/191757 RPT#: [id number] DC DATE: STATUS: ADM IN [facility] [address] [place] [address] END OF REPORT
--- NOTE | 2019-10-13 18:24 | NUR ---
PT STATES PAIN HAS SUBSIDED, NO CHANGES NOTED, WILL CONTINUE TO MONITOR
[2019-10-13 19:20] LABS: HEMATOCRIT 36.9 % (36.0-48.0); HEMOGLOBIN 11.9 g/dL (12-16)
--- NOTE | 2019-10-13 19:47 | NUR ---
PT RECEIVED WITH EYES CLOSED AND CHEST RISING. EASILY AWOKEN TO VERBAL STIMULI. REQUEST WATER AND RECEIVED. HEAD OF BED FLAT AND RAISE TO 10DEGREES PER PT REQUEST FOR COMFORT WITH BEING PULLED UP IN BED. NO OTHER NEEDS MADE KNOWN. CALL LIGHT IN REACH. WILL CONTINUE TO OBSERVE.
--- NOTE | 2019-10-13 21:12 | NUR ---
PT ASSISTED TO BATHROOM, STANDBY ASSIST ONLY PROVIDED FOR IV PUMP. PT BACK IN BED, ON MONITORS. NO COMPLAINTS MADE KNOWN. WILL CONTINUE TO OBSERVE. URINE ONLY NOTED. CALL LIGHT IN REACH.
--- NOTE | 2019-10-13 23:37 | NUR ---
PT RESTING WITH EYES CLOSED AND CHEST RISING. EASILY AWOKEN TO VERBAL STIMULI. NO NEEDS MADE KNOWN. CALL LIGHT IN REACH. WILL CONTINUE TO OBSERVE.
[2019-10-14] VITALS (90 sets, daily range): BP systolic 106–207; BP diastolic 46–161
[2019-10-14 01:26] LABS: HEMOGLOBIN 10.4 g/dL (12-16)
--- NOTE | 2019-10-14 01:58 | NUR ---
SPO2 SENSOR CAME OFF. NEW SENSOR PLACED. NO OTHER NEEDS OF CONSCERNS NOTED. WILL CONTINUE TO OBSERVE. CALL LIGHT IN REACH.
--- NOTE | 2019-10-14 03:30 | NUR ---
PT RESTING WITH EYES CLOSED AND CHEST RISING. EASILY AWOKEN TO VERBAL STIMULI. NO NEEDS MADE KNOWN. CALL LIGHT IN REACH. WILL CONTINUE TO OBSERVE.
[2019-10-14 06:22] LABS: CKMB 3.1 U/L (0.0-3.6)
[2019-10-14 06:25] LABS: TROPONIN-I 2.872 ng/mL (0.000-0.060)
--- NOTE | 2019-10-14 06:26 | NUR ---
PT SUDDENLY AWOKEN AND STATES FEELING LIKE SHE CAN'T BREATH AND HOT. A FAN TURNED ON. RESPIRATION RATE AND SPO2 WNL. COMPLAINS OF MIDSTERNAL PAIN, PT STATES IT FELT LIKE GAS. HR AND B/P BEGAN INCREASING. HR UPTO 120 AND B/P UPTO 203/121. PRN MORPHINE GIVEN PER JAN FOR PAIN AND NITRO BEING TITRATED. JEWEL BEARING FACER SUPERVISORY AIR INTERCEPT CONTROLLER PAGED AND RETURNED CALL, REPORT GIVEN AND RECEIVED ORDERS FOR LOPRESSOR 5MG IV ONE TIME. ORDERS PLACED INTO Tapastreet AND MEDICATION GIVEN. NEW IV TO LEFT HAND. PT STABLIZING AND NITRO TITRATING DOWN TOLERATED. WILL CONTINUE TO OBSERVE.
[2019-10-14 07:06] LABS: HEMATOCRIT 34.1 % (36.0-48.0); HEMOGLOBIN 10.6 g/dL (12-16); MCH 26.9 pg (26.0-34.0); MCHC 31.1 g/dL (31.0-37.0); MCV 86.5 fL (80.0-100.0); MEAN PLATELET VOLUME 9.9 fL (7.4-10.4); PLATELET COUNT 271 10x3/uL (130-400); RBC 3.94 10x6/uL (4.00-5.40); RDW 15.3 % (11.5-14.5)
[2019-10-14 07:11] LABS: ANION GAP 9.8 mmol/L (8-16); CALCIUM 7.9 mg/dL (8.5-10.1); CARBON DIOXIDE 25.6 mmol/L (21.0-32.0); CREATININE - SERUM 0.9 mg/dL (0.6-1.3); MAGNESIUM - SERUM 1.7 mg/dL (1.8-2.4)
[2019-10-14 07:12] LABS: POTASSIUM - SERUM 4.4 mmol/L (3.5-5.1)
[2019-10-14 09:24] LABS: ANISOCYTOSIS OCC; EOSINOPHILS 2 % (0-7); HYPOCHROMASIA OCC; LYMPHOCYTES 10 % (15-50); MONOCYTES 2 % (2-11); NEUTROPHILS 84 % (40-80); PLATELET ESTIMATE NORMAL
[2019-10-14 10:17] LABS: BASOPHILS 0.1 % (0-2); EOSINOPHILS 0.2 % (0-7); HEMATOCRIT 38.5 % (36.0-48.0); HEMOGLOBIN 12.3 g/dL (12-16); IMMATURE GRANULOCYTES 0.5 % (0-5); LYMPHOCYTES 8.7 % (15-50); MCH 27.6 pg (26.0-34.0); MCHC 31.9 g/dL (31.0-37.0); MCV 86.3 fL (80.0-100.0); MEAN PLATELET VOLUME 10.5 fL (7.4-10.4); MONOCYTES 3.6 % (2-11); NEUTROPHILS 86.9 % (40-80); RBC 4.46 10x6/uL (4.00-5.40); RDW 15.4 % (11.5-14.5); WBC 19.6 10x3/uL (4.8-10.8)
[2019-10-14 10:32] LABS: APTT 25.8 SECONDS (22.8-39.4); INR 1.09 (0.85-1.17); PROTIME 13.6 SECONDS (11.6-15.0)
[2019-10-14 10:34] LABS: PLATELET COUNT 331 10x3/uL (130-400)
[2019-10-14 10:40] LABS: ALBUMIN 3.1 g/dL (3.4-5.0); ALKALINE PHOSPHATASE 103 U/L (46-116); ALT (SGPT) 31 U/L (10-68); BILIRUBIN - TOTAL 0.49 mg/dL (0.2-1.3); CALC OSMOLALITY 277 mosm/kg (275-300); CARBON DIOXIDE 24.6 mmol/L (21.0-32.0); CHLORIDE - SERUM 108 mmol/L (98-107); CHOLESTEROL, TOTAL 230 mg/dL (0-200); CREATININE - SERUM 0.8 mg/dL (0.6-1.3); GLUCOSE 112 mg/dL (74-106); PHOSPHOROUS 2.6 mg/dL (2.5-4.9); POTASSIUM - SERUM 4.2 mmol/L (3.5-5.1); PROTEIN - SERUM 6.8 g/dL (6.4-8.2); SODIUM 140 mmol/L (136-145); T4 THYROXIN - FREE 1.05 ng/dL (0.76-1.46); THYROID STIMULATING HORMONE 0.45 uIU/mL (0.36-3.74); UREA NITROGEN 7 mg/dL (7-18); URIC ACID 2.4 mg/dL (2.6-7.2); eGFR NON AFRICAN AMERICAN 77 mL/min (90-120)
--- NOTE | 2019-10-14 10:41 | NUR ---
0700 PT RECIEVED RESTING IN BED DENIES PAIN AND ALL NEEDS, REFUSED BREAKFAST STATED SHE WANTED TO SLEEP, VSS, L HAND AND RFA PIV SEE IV FLOWSHEET, L GROIN SOFT TO PALPATE 1000 PT ASSISTED TO BATHROOM, ASSISTED BACK TO BED, UPON RETURN HAD LABS DRAWN, PULLED OUT L HAND PIV, DRESSING APPLIED, PT SIGNED CONSENT FORMS THEN BEGAN TO GET ANXIOUS, BREATHING QUICK AND SHALLOW, RT INCREASED O2 WITH HIGH FLOW CANNULA, DR SILVA INUNIT AND ORDERED ATIVAN, NITRO INITIATED PER IV FLOWSHEET, PT SLOWLY BEGAN TO RELAX AND STATED BREATHING WAS GETTING BETTER, DR SIMONS NURSE ALICIA NOTIFIED OF EVENTS WELL.
--- NOTE | 2019-10-14 11:15 | NUR ---
PT CONTINUED HAVING DYSPNEA, BECAME DIAPHORETIC AND DEVELOPED FEELINGS OF IMPENDING DOOM, DR SCHWARTZ INUNIT AND ORDERED EKG, ABGS, CXR, REVIEWED RESULTS, DR CHILEL AWARE OF CONSULT, DR SIMONS NURSES NOTIFIED AND CAME TO ROOM, PLACED ON NONREBREATHER, SPO2 96% CURRENTLY
--- NOTE | 2019-10-14 12:13 | NUR ---
HENDERSON CATH INSERTED, CONSENTS FOR IABP OBTAINED, NOW ON BIPAP PT RESTING QUIETLY, DENIES ALL NEEDS, CALLED SON TO UPDATE
[2019-10-14 12:14] LABS: APPEARANCE CLEAR (CLEAR); COLOR YELLOW (YELLOW); GLUCOSE 50 mg/dL (NEGATIVE); NITRITE NEGATIVE (NEGATIVE); PROTEIN NEGATIVE (NEGATIVE)
[2019-10-14 12:15] LABS: BILIRUBIN NEGATIVE (NEGATIVE); KETONE MODERATE mg/dL (NEGATIVE); UROBILINOGEN NORMAL (NORMAL)
[2019-10-14 14:07] LABS: HEMATOCRIT 36.6 % (36.0-48.0); HEMOGLOBIN 11.6 g/dL (12-16)
--- NOTE | 2019-10-14 15:16 | NUR ---
PT TO E COMMERCE DEVELOPER FOR IABP
--- NOTE | 2019-10-14 16:23 | NUR ---
PT RECIEVED BACK TO ROOM IABP TO R GROIN 1:1 ALARMS SET, SITE SOFT, ALL PULSES PALPABLE, NO CHANGES IN IV GTTS, PT DROWSY BUT AWAKENS AND FOLLOWS ALL COMMANDS, DR HUDSON AWARE, PER DITCHING MACHINE OPERATING ENGINEER ASKED ABOUT HEPARIN, DOES NOT WANT HEPARIN. WILL CONTINUE TO MONITOR
--- NOTE | 2019-10-14 16:50 | NUR ---
CXR DONE AND REVIEWED BY DR HUDSON IN UNIT
--- NOTE | 2019-10-14 19:00 | NUR ---
REPORT RECEIVED, SHIFT ASSESSMENT COMPLETE PER FLOW SHEET, PT AWAKE AND ALERT TALKING ON PHONE, SUPINE IN BED, IABP IN RT GROIN, SITE C/D/I, IABP 1:1 VIA EKG, PPPx4, LEFT GROIN CATH SITE C/D/I, CRITICORE HENDERSON CATH, NSR ON CM, VSS, PT DENIES PAIN OR NEEDS AT THIS TIME, WILL CONTINUE TO MONITOR
[2019-10-14 19:19] LABS: HEMOGLOBIN 10.7 g/dL (12-16)
--- NOTE | 2019-10-14 20:00 | NUR ---
LARGE CUP WARM CHICKEN BROTH GIVEN PER REQUEST, PT DENIES PAIN OR NEEDS AT THIS TIME, VSS, WILL CONTINUE TO MONITOR
--- NOTE | 2019-10-14 21:00 | NUR ---
MEDS GIVEN PER MAR/ORDERS, NO ACUTE S/S OF DISTRESS NOTED, PT TALKING ON CELL PHONE WITH FAMILY MEMBERS, DENIES PAIN OR NEEDS AT THIS TIME, VSS, WILL CONTINUE TO MONITOR
--- NOTE | 2019-10-14 22:10 | NUR ---
PT C/O LOWER ACHING BACK PAIN, PAIN MED GIVEN PER MAR/ORDERS, VSS, WILL CONTINUE TO MONITOR
--- NOTE | 2019-10-14 23:00 | NUR ---
REASSESSMENT COMPLETE SEE FLOW SHEET FOR FURTHER, NO ACUTE CHANGES FROM PRIOR ASSESSMENT, PT RESTING WITH EYES CLOSED, BLE TO WAKE WITH MINIMAL STIMULI, AAOx4, PT SUPINE IN BED, IABP 1:1 VIA EKG, SITE C/D/I, PPPx4, VSS, NSR ON CM, CRITICORE HENDERSON CATH SECURED, CLEAR YELLOW VOID NOTED, LEFT GROIN CATH SITE C/D/I, TENDER TO PALPATION, NO ACUTE S/S OF BLEED, IABP ALARMS ON, BED ALARM ON, CALL LIGHT IN REACH, PT DENIES NEEDS AT THIS TIME, WILL CONTINUE TO MONITOR
[2019-10-15] VITALS (72 sets, daily range): BP systolic 102–148; BP diastolic 39–91
--- NOTE | 2019-10-15 01:00 | NUR ---
FAMILY AT BEDSIDE PER REQUEST TO VISIT, PT AWAKE AND ALERT, DENIES PAIN OR NEEDS AT THIS TIME, VSS, WILL CONTINUE TO MONITOR
--- NOTE | 2019-10-15 03:00 | NUR ---
REASSESSMENT COMPLETE PER FLOW SHEET, NO ACUTE CHANGES FROM PRIOR ASSESSMENT, PT AWAKE AND ALERT, DENIES PAIN OR NEEDS AT THIS TIME, SUPINE IN BED, IABP TO RT GROIN 1:1, ALARMS SET, SITE SOFT TO PALPATION, ALL PULSES PALPABLE, VSS, NSR ON CM, CALL LIGHT IN REACH, BED ALARM ON, NPO PER ORDERS, WILL CONTINUE TO MONITOR
--- NOTE | 2019-10-15 04:30 | NUR ---
CHG BATH, COMPLETE LINEN CHANGE WITH NEW GOWN, PT TOLLERATED WELL WITH NO S/S OF ACUTE DISTRESS, VSS, NSR ON CM, IABP SITE C/D/I, ALL PULSES PALPABLE, WILL CONTINUE TO MONITOR
[2019-10-15 04:33] LABS: BASOPHILS 0.1 % (0-2); EOSINOPHILS 1.8 % (0-7); HEMATOCRIT 35.3 % (36.0-48.0); HEMOGLOBIN 11.2 g/dL (12-16); IMMATURE GRANULOCYTES 0.3 % (0-5); LYMPHOCYTES 23.8 % (15-50); MCH 27.1 pg (26.0-34.0); MCHC 31.7 g/dL (31.0-37.0); MCV 85.3 fL (80.0-100.0); MEAN PLATELET VOLUME 10.2 fL (7.4-10.4); MONOCYTES 9.9 % (2-11); NEUTROPHILS 64.1 % (40-80); PLATELET COUNT 288 10x3/uL (130-400); RBC 4.14 10x6/uL (4.00-5.40); RDW 15.2 % (11.5-14.5)
[2019-10-15 04:37] LABS: WBC 9.7 10x3/uL (4.8-10.8)
[2019-10-15 04:53] LABS: ALBUMIN 3.1 g/dL (3.4-5.0); ANION GAP 10.8 mmol/L (8-16); BILIRUBIN - TOTAL 0.45 mg/dL (0.2-1.3); CALCIUM 8.3 mg/dL (8.5-10.1); CARBON DIOXIDE 27.9 mmol/L (21.0-32.0); MAGNESIUM - SERUM 1.7 mg/dL (1.8-2.4); PHOSPHOROUS 2.7 mg/dL (2.5-4.9); POTASSIUM - SERUM 3.7 mmol/L (3.5-5.1); PROTEIN - SERUM 6.8 g/dL (6.4-8.2)
--- NOTE | 2019-10-15 05:24 | NUR ---
NOTIFIED OF ABNORMAL LABS, NO ORDERS RECEIVED TO TREAT LABS, ORDER RECEIVED TO GET EKG, NO FURTHER AT THIS TIME, PT AWAKE AND ALERT, VSS, WILL CONTINUE TO MONITOR
--- NOTE | 2019-10-15 05:34 | NUR ---
CALLED CVICU, ORDERS RECEIVED TO GIVE PRE-OP MEDS, CONSENTS SIGNED AND ON CHART, DENTURED REMOVED FROM PT AND IN ROOM WITH LABEL ON CONTAINER, PT PLACED ON PORTABLE MONITOR, PORTABLE O2 TANK, NO FURTHER AT THIS TIME, PT AWAKE AND ALERT, FAMILY AT BEDSIDE, VSS, WILL CONTINUE TO MONITOR
--- NOTE | 2019-10-15 06:44 | NUR ---
AND OR TEAM IN ROOM, PT TAKEN TO O.R. ON ICU BED, PORTABLE MONITOR ON PT, CHART ON BED, VSS
[2019-10-15 12:11] LABS: INR 1.63 (0.85-1.17); PROTIME 18.7 SECONDS (11.6-15.0)
--- NOTE | 2019-10-15 12:47 | NUR ---
Nutrition Follow-up: CABG today. Diet: Clear Liquid -> AHA Wt: 168.6# Last BM: 10/12 Labs reviewed Meds reviewed -Rec ADAT as medically feasible. -RD following.
--- NOTE | 2019-10-15 13:00 | NUR ---
PT ARRIVED IN THE UNIT. SEDATED AND ON THE VENTILAOR. PT HOOKED TO ICU MONITOS. SINUS TACH NOTED. PT ON NITRO AND CLEVIPREX INITIATED PER ANESTESIA. 8.0 ETT NOTED. MIDSTERANL AND SUBSTERNAL DRESSING C/D/I. 2 CT CONNECTED INTO A SINGLE TUBE LABLED A AND A SINGLE CT LABLED P CONNECTED TO 20 H20 SUCTION WITH NO LEAK NOTED. L MEERA DRAIN NOTED. ALL DRAINS ARE NOTED TO HAVE BLOODY DRAINAGE. FC NOTED WITH CLEAR, YELLOW URINE. RLE HARVESTED SITE. RLE WRAPPED FROM ANKLE TO GROIN. IABP NOTED THROUGH THE RIGHT GROIN. PULSES PALPABLE. R RADIAL HAIM NOTED. WRIST PROTECTOR ON WITH A GOOD WAVE FORM. R IJ SWAN NOTED ABOUT 52 CM. DRESSING C/D/I. WILL CONT POC.
--- NOTE | 2019-10-15 13:10 | NUR ---
DR RICHARDSON AT THE PTS BEDSIDE. 4MG GIVEN AND [address] SEE.
--- NOTE | 2019-10-15 13:30 | NUR ---
DR HUDSON AT THE PTS BEDSIDE. ABG RESULTS RECEVIED. GIVE 20MEQ K OVER 2 HOURS, GIVE 1 FFP. KEEP PT SEDATED OVER NIGHT.
--- NOTE | 2019-10-15 14:05 | NUR ---
GIVE 2.5 IV LOPRESSOR NOW PER DR HUDSON FOR SINUS TACH.
--- NOTE | 2019-10-15 14:10 | NUR ---
TURN IABP TO 1:[address] HUDSON
--- NOTE | 2019-10-15 14:55 | NUR ---
FFP COMPLETED. NO S/SX OF ADVERSE REACTION. WILL CONT POC.
--- NOTE | 2019-10-15 15:00 | NUR ---
GIVE 2.5 IV LOPRESSOR, MORPHINE AND START FENTANYL PER DR HUDSON FOR SINUS TACH.
[2019-10-15 15:05] LABS: INR 1.32 (0.85-1.17); PROTIME 15.8 SECONDS (11.6-15.0)
--- NOTE | 2019-10-15 15:35 | NUR ---
GIVE 0.[address] HUDSON.
--- NOTE | 2019-10-15 17:00 | NUR ---
VSS. WILL CONT POC.
--- NOTE | 2019-10-15 19:00 | NUR ---
REPORT RECEIVED AT BEDSIDE, SHIFT ASSESSMENT COMPLETE PER FLOW SHEET, PT SEDATED ON VENT @80%FiO2, PT ON CVICU MONITORS, NSR ON CM, MIDSTERNALAND SUBSTERNAL DRSG'S C/D/I, CT x3, x2 CTA Y'D TOGETHER, x1 CTP SINGLE TUBE, TO 20CM SUCTION, NO AIR LEAK NOTED, L SUBSTERNAL MEERA DRAIN COMPRESSED, BLOODY DRAINAGE NOTED IN CTx3 AND L MEERA DRAIN, CRITICORE HENDERSON CATH CLEAR YELLOW URINE NOTED, RLE HARVEST SITES WITH COBAN DRSG FROM THIGH TO ANKLE, IABP VIA RIGHT GROIN, PULSES PALPABLE IN ALL EXTREMITIES, RT RADIAL ART LINE WITH WRIST PROTECTOR, GOOD WAVEFORM NOTED, RT IJ CVL AND RT IJ SWAN NOTED APPROX 52CM AND LOCKED, ALL DRSG'S C/D/I, VSS, WILL CONTINUE TO MONITOR
--- NOTE | 2019-10-15 23:00 | NUR ---
REASSESSMENT COMPLETE PER FLOW SHEET, NO ACUTE CHANGES FROM PRIOR ASSESSMENT, PT SEDATED ON VENT, NSR ON CM, VSS, ALL DRSG'S C/D/I, CTx3 AND MEERA DRAIN NOTED WITH BLOODY OUTPUT, BL;NING DRAIN COMPRESSED, IABP SITE C/D/I SOFT TOP PALPATION, PULSES PALPABLE IN ALL EXTREMITIES, WILL CONTINUE TO MONITOR
[2019-10-16] VITALS (109 sets, daily range): BP systolic 95–159; BP diastolic 39–91
--- NOTE | 2019-10-16 00:40 | NUR ---
CALLED , NOTIFIED THAT PRIOR LASIX ON JAN SHOWED IT WAS ON HOLD, STATED TO CONTINUE TO HOLD LASIX, NOTIFIED DR. HUDSON OF URINE OUTPUT FOR LAST TWO HOURS OF 26ML AND 37ML, NO NEW ORDERS RECEIVED, WILL CONTINUE TO MONITOR
--- NOTE | 2019-10-16 03:00 | NUR ---
REASSESSMENT COMPLETE SEE FLOW SHEET FOR FURTHER, PT SEDATED ON VENT @40%FiO2, NO ACUTE CHANGES FROM PRIOR ASSESSMENT, ALL DRSG'S C/D/I, CTx3 TO 20CM SUCTUION, NO AIR LEAK NOTED, MEERA DRAIN COMPRESSED, IABP 1:2, VSS, NSR ON CM, PT SUPINE IN BED, BILAT SOFT WRIST RESTRAINTS REPOSITIONED, SKIN ASSESSED, NO BREAKDOWN NOTED, ORAL CARE AND SUCTIONING COMPLETED, CRITICORE HENDERSON CATH PATENT WITH CLEAR YELLOW VOID, PT APPREARS TO BE RESTING COMFORTABLY WITH NO S/S OF PAIN, WILL CONTINUE TO MONITOR
[2019-10-16 05:42] LABS: BASOPHILS 0 % (0-2); EOSINOPHILS 1.1 % (0-7); IMMATURE GRANULOCYTES 0.3 % (0-5); LYMPHOCYTES 15.4 % (15-50); MCH 27.8 pg (26.0-34.0); MCHC 33.1 g/dL (31.0-37.0); MCV 84.2 fL (80.0-100.0); MEAN PLATELET VOLUME 9.9 fL (7.4-10.4); MONOCYTES 13.7 % (2-11); NEUTROPHILS 69.5 % (40-80); RDW 15.2 % (11.5-14.5); WBC 9.9 10x3/uL (4.8-10.8)
[2019-10-16 06:23] LABS: ALBUMIN 2.4 g/dL (3.4-5.0); ALKALINE PHOSPHATASE 52 U/L (46-116); ALT (SGPT) 20 U/L (10-68); BILIRUBIN - TOTAL 0.35 mg/dL (0.2-1.3); CALC OSMOLALITY 279 mosm/kg (275-300); CALCIUM 7.5 mg/dL (8.5-10.1); CARBON DIOXIDE 24.3 mmol/L (21.0-32.0); CHLORIDE - SERUM 109 mmol/L (98-107); CREATININE - SERUM 0.6 mg/dL (0.6-1.3); GLUCOSE 107 mg/dL (74-106); MAGNESIUM - SERUM 2.3 mg/dL (1.8-2.4); POTASSIUM - SERUM 3.9 mmol/L (3.5-5.1); SODIUM 142 mmol/L (136-145); UREA NITROGEN 5 mg/dL (7-18); eGFR NON AFRICAN AMERICAN > 90 mL/min (90-120)
[2019-10-16 06:28] LABS: HEMATOCRIT 23.9 % (36.0-48.0); HEMOGLOBIN 7.9 g/dL (12-16); RBC 2.84 10x6/uL (4.00-5.40)
[2019-10-16 06:30] LABS: PLATELET COUNT 124 10x3/uL (130-400)
--- NOTE | 2019-10-16 06:40 | NUR ---
NOTIFIED OF MORNING LAB RESULTS, NO NEW ORDERS RECEIVED
[2019-10-16 08:45] LABS: INR 1.28 (0.85-1.17); PROTIME 15.4 SECONDS (11.6-15.0)
--- NOTE | 2019-10-16 09:28 | NUR ---
PT REMAINS SEDATED AT THIS TIME. AT SHIFT CHANGE PT HAD BALLOON PUMP ENTRY THROUGH RIGHT GROIN. SETTING 1:2. SITE WNL. AT 0800 DR HUDSON AT BEDSIDE AND PULLED IABP. PRESSURE WAS HELD UNTIL 0830. PULSES VERIFIED BY DOPPLER EVERY 10 MINS. SITE REMAINS WITHOUT S/S HEMATOMA. SOFT. DRESSING C,D,I. PT HAS BEEN GIVEN CHG BATH, HENDERSON CARE PROVIDED. COBAN TO RIGHT LEG REMOVED AND DELMY AND SCD PLACED. HARVEST SITE INCISIONS WNL AND ARE GLUED AND OPEN TO AIR. 1 UNIT PRBC INFUSING AT THIS TIME. VSS. PT DOES HAVE ELEVATED TEMP OF 38.4. WAS GIVEN TYLENOL SUPPOSITORY AT SHIFT CHANGE BY OFF-GOING RN.
--- NOTE | 2019-10-16 10:45 | NUR ---
DR SILVA BY TO SEE PATIENT. DAUGHTER HAS CALLED TO CHECK ON PATIENT. UPDATED PLAN TO STOP SEDATION TODAY AND LET PATIENT WAKE UP.
--- NOTE | 2019-10-16 13:13 | NUR ---
BHARAT HUDSON AND RANJANA BY TO SEE PATIENT. HAVE STARTED COMING OFF OF SEDATION. HAD TO TURN ON NITRO AND INCREASE SEVERAL TIMES. PT BP HAS STARTED CLIMBING. SBP FROM ART AND CUFF DO NOT MATCH UP. ORDER OF 2.5 LOPRESSOR RECEIVED. MEDICATION GIVEN. PT OPENS EYES. FOLLOWS COMMANDS.
--- NOTE | 2019-10-16 13:51 | NUR ---
PT AWAKE. FOLLOWS COMMANDS. REMAINS INTUBATED. WEANING.
--- NOTE | 2019-10-16 14:25 | OP ---
PATIENT NAME: ABILIO NELSON MEDICAL RECORD: [id number] :58 LOCATION:[facility] ADMISSION DATE:10/12/19 SURGEON: LUC HUDSON MD DATE OF OPERATION: 10/15/2019 SURGEON: Luc Hudson MD ENGRAVER SIGNATURE: None. PROCEDURE PERFORMED: Coronary artery bypass graft times 3 (left internal mammary to LAD, reverse saphenous vein graft from aorta to diagonal, aorta to distal branch, posterior descending artery). PREOPERATIVE DIAGNOSES: Coronary artery disease, acute myocardial infarction, ischemic cardiomyopathy, intraaortic balloon pump placement, and history of cocaine abuse. POSTOPERATIVE DIAGNOSES: Coronary artery disease, acute myocardial infarction, ischemic cardiomyopathy, intraaortic balloon pump placement, and history of cocaine abuse. ANESTHESIA: General endotracheal anesthesia. ESTIMATED BLOOD LOSS: Total cardiopulmonary bypass with Cell Saver retransfusion, 1 packed red blood cells, 1 platelets, 2 FFP. SPECIMENS: Internal mammary artery lymph node for permanent specimen. COMPLICATIONS: None. CONDITION: Critical. DISPOSITION: CV ICU. OPERATIVE FINDINGS: 1. Transesophageal echocardiogram revealed improved contractility from yesterday's transthoracic of 25% prior to the intraaortic balloon pump up to about 40% with distal septal and apical akinesis, persistent after coronary artery bypass graft on low-dose dopamine. The patient had moderate bradycardia prior to surgery. cardiopulmonary bypass on dopamine, but was on no pressors before she arrived in the cardiovascular intensive care. 2. Intraaortic balloon pump, right femoral functioning properly. No evidence of hematoma at the left groin before and after heparinization. 3. Good quality greater saphenous vein, 1 portion from the lower leg for the diagonal, 1 portion from the thigh, which then became aneurysmal at the upper one-third area of the thigh. 4. Good quality left internal mammary artery to the LAD, severely diseased 1.5 mm vessel. Good Doppler signal after anastomosis and after reversal of heparin. 5. First diagonal 1.5 mm with severe disease. 6. No sizable obtuse marginal branches for bypass. 7. Posterior descending artery was severely diseased to its bifurcation point 1.5 mm with severe disease at the site of anastomosis of the proximal portion of the distal branch. 8. Evidence of coagulopathy after separation from cardiopulmonary bypass. OPERATIVE REPORT [id number] ABILIO NELSON OPERATIVE INDICATION: Acute myocardial infarction, ongoing ischemia, coronary artery disease. PROCEDURE IN DETAIL: The patient was brought to the operating suite. General anesthesia was obtained, the patient was prepped and draped. The greater saphenous vein harvested with bridging incisions in the right thigh and right lower leg. Side branches clipped, vessel ligated proximally and distally, and removed. Side branches were tied and thin sites were oversewn. Leg was closed in 2 layers. Mediastinotomy incision was made. Subcutaneous tissue was divided with electrocautery. Sternum was divided with a saw. Left hemisternum was elevated. Left lower cavity was entered. The left internal mammary was taken as a pedicle graft. Sternal retractor was placed. Pericardium was opened. Heparin was given. Aorta was cannulated. Dual stage venous cannula was inserted. The internal mammary was clipped distally and made ready for anastomosis. Activated clotting time was appropriately elevated. The patient was placed on cardiopulmonary bypass. Sites for distal anastomoses were selected. Retrograde cardioplegia cannula was inserted. Antegrade cardioplegia cannula was inserted. The patient was cooled. Crossclamp was placed. Cardioplegia given antegrade and retrograde. Antegrade cardioplegia was repeated at 20-minute intervals including down the completed vein grafts. Distal anastomosis was performed in standard technique. Proximal anastomosis with single cross-clamp technique. The aortic root de-aired. Crossclamp removed. Proximal anastomosis tied down. Vein graft de-aired and flow restored. Proximal and distal anastomotic sites inspected for bleeding. A single 6-0 in the proximal. The patient resumed a spontaneous rhythm, fully rewarmed, weaned from cardiopulmonary bypass and stable. The patient was decannulated. The cannula sites were oversewn. Protamine was given. Atrial and ventricular pacing wires were placed. Drains were placed in mediastinum both pleural cavities. Pericardial fat was loosely reapproximated in midline. The left chest was evacuated and irrigated. The internal mammary harvest site was inspected for bleeding. Sternum was closed with wires. Fascia was closed. Subcutaneous tissue was closed. Skin was closed. Dermabond was placed. Needle and sponge counts were reported as correct. The patient was taken to ICU in stable condition. TRANSINT:[id number] Voice Confirmation ID: [id number] DOCUMENT ID: [id number] LUC HUDSON MD at 1425 CC: LUCAS SILVA and TOOTIE RENTERIA [id number] DICTATION DATE: 10/15/19 1426 PAPER CONE MACHINE OPERATOR: 10/15/19 1754 ADM IN [facility] [address] [id number]
--- NOTE | 2019-10-16 14:34 | NUR ---
PT HR ELEVATED. BP CONTINUES TO RISE. SPOKE WITH DR HUDSON. NEW ORDERS RECEIVED. TO RESTART DIPRIVAN ON PATIENT AT THIS TIME
--- NOTE | 2019-10-16 15:13 | NUR ---
DR HUDSON CAME BACK TO ROOM. ASKED FOR CLEVIPREX TO BE STARTED.
--- NOTE | 2019-10-16 15:24 | NUR ---
PT REPOSITIONED TO RIGHT SIDE. BECAME AGITATED. TACHYCARDIC. INCREASED CLEVIPREX FOR ELEVATED PRESSURES.
--- NOTE | 2019-10-16 17:45 | NUR ---
PT ATTEMPTING TO RAISE HEAD AND PULL AT RESTRAINTS. RAISING LEGS ANDPULLING AT SCD LINES. PROPOFOL INCREASED TO ENCOURAGE RELAXATION
--- NOTE | 2019-10-16 18:31 | NUR ---
PT BROTHER CALLED FOR UPDATE. LET HIM KNOW THAT WE HAD TRIED TO WAKE HER AND WEAN HER OFF OF THE BREATHING TUBE, BUT HER HR AND BP WERE NOT WHERE WE WANTED AND SHE BECAME ANXIOUS AND WE HAD TO TURN SEDATION BACK ON. WILL LET HER REST THROUGH THE EVENING AND TRY AGAIN TOMORROW.
--- NOTE | 2019-10-16 19:14 | NUR ---
CALLED DR HUDSON TO GIVE UPDATE. PT HR 115-118. RESTLESS. HAVE GONE UP ON DIPRIVAN. SAYS OK TO GIVE SCHEDULED LOPRESSOR NOW. CAN RESTART FENTANYL TO TRY TO HELP PT RELAX. REVIEWED DOSING OF CLEVIPREX. WANTS TO KEEP SBP UNDER 150.
--- NOTE | 2019-10-16 19:15 | NUR ---
REPORT REC'D AND CARE ASSUMED, REC'D PT SEDATED ON VENT VIA 8.0 ETT, SEE FLOWSHEET FOR VENT SETTINGS, PT RESTLESS IN BED, CM-ST @ 115, RIJ CYNTHIA DIAZ DRSG CDI WITH MANNIFOLD TO PROXIMAL INFUSION, PLASMALYTE @ 100CC/HR, CLEVIPREX @ 12CC/HR OR 6MG/HR, NITROGLYCERIN @ 33MCG/MIN OR 9.9CC/HR, AND DIPRIVAN @ 26.4CC/HR OR 55MCG/KG/MIN, RIGHT RADIAL HAIM WITH FLEXION BOARD IN USE, DRSG CDI, MIDSTERNAL DRSG CDI, SUBSTERNAL DRSG CDI, TEMP P/M CONNECTED TO WIRES BUT NOT IN USE, MEDIASTINAL CT'S TO 20CM H20 SUCTION, SANGUINOUS DRAINAGE PRESENT, NO AIR LEAK NOTED, LEFT SUBSTERNAL MEERA DRAIN TO BULB SUCTION WITH SANGUINOUS DRAINAGE PRESENT, CRITICORE HENDERSON PATENT DRAINING CLEAR YELLOW URINE, BILAT TEDS/SCDS, PPP, BILAT SOFT WRIST RESTRAINTS INTACT, 1:1 NURSING AT BS.
--- NOTE | 2019-10-16 19:25 | NUR ---
FENTANYL RESUMED @ 50MCG/HR, RESP RATE 24, CM-ST @ 112, WILL MONITOR CLOSELY FOR CHANGES.
--- NOTE | 2019-10-16 20:00 | NUR ---
UNABLE TO COMPLETE SUICIDED RISK SCREENING DUE TO PT BEING INTUBATED AND SEDATED.
--- NOTE | 2019-10-16 21:10 | NUR ---
EVENING MEDS GIVEN, NO VISITORS IN AT THIS TIME, PT REPOSITIONED ONTO RIGHT SIDE WITH ASSISTANCE FROM BED AND SUPPORTED WITH PILLOW, TOLERATED WELL.
--- NOTE | 2019-10-16 22:12 | NUR ---
PT'S TEMP PER CRITICORE 38.8, AWARE OF TREND, 650 MG TYLENOL SUPP GIVEN AT THIS TIME, WILL CONT TO MONITOR CLOSELY FOR CHANGES.
--- NOTE | 2019-10-16 23:05 | NUR ---
REASSESSMENT COMPLETED, PT REMAINS SEDATED ON VENT, ATTEMPTING TO WEAN DIPRIVAN SOME AT THIS TIME, MIDSTERNAL DRSG CDI, CT'S TO 20CM H2O SUCTION, SANGUINOUS DRAINAGE NOTED, LEFT SUBSTERNAL MEERA DRAIN COMPRESSED WITH SEROSANGUINOUS DRAINAGE, DRSGS CDI, CRITICORE HENDERSON PATENT, PPP, PT REPOSITIONED UP IN BED AND ONTO LEFT SIDE SUPPORTED WITH PILLOWS, BILAT SOFT WRIST RESTRAINTS INTACT, 1:1 NURSING CONTINUES.
[2019-10-17] VITALS (84 sets, daily range): BP systolic 100–152; BP diastolic 52–81
--- NOTE | 2019-10-17 01:00 | NUR ---
CLEVIPREX WEANED OFF, BP STABLE, ATTEMPTING TO WEAN NITROGLYCERIN AND DIPRIVAN AT THIS TIME, CM-87, BP 113/63.
--- NOTE | 2019-10-17 03:12 | NUR ---
REASSESSMENT COMPLETED, CONTINUING TO WEAN NITROGLYCERIN AND DIPRIVAN, RT AT BS, FIO2 DECREASED TO 50%, TEMP 37.7 BY CRITICORE, NO FURTHER CHANGES NOTED, VSS.
--- NOTE | 2019-10-17 04:40 | NUR ---
RADIOLOGY @ BS FOR AM CXR
--- NOTE | 2019-10-17 05:00 | NUR ---
CHG BATH AND COMPLETE LINEN CHANGE PROVIDED, ORAL CARE PROVIDED AND LIP MOISTURIZER APPLIED, RESP RATE INCREASED TO 30 DURING BATH, ATTEMPTED TO CALM PT AND ENCOURAGE SLOWING OF RESPIRATIONS, REPOSITIONED UP IN BED AND ONTO RIGHT SIDE SUPPORTED WITH PILLOW, TEDS AND SCDS REMOVED DURING BATH REAPPLIED AT THIS TIME, RESP RATE 21, BP STABLE, SR UP X 2, BILAT SOFT WRIST RESTRAINTS INTACT.
--- NOTE | 2019-10-17 05:50 | NUR ---
AM LAB DRAWN FROM HAIM AND SENT TO LAB, NO VISITORS IN THIS AM.
[2019-10-17 06:05] LABS: BASOPHILS 0.1 % (0-2); EOSINOPHILS 2.1 % (0-7); HEMATOCRIT 26.4 % (36.0-48.0); HEMOGLOBIN 8.8 g/dL (12-16); IMMATURE GRANULOCYTES 0.4 % (0-5); LYMPHOCYTES 12.1 % (15-50); MCH 28.6 pg (26.0-34.0); MCHC 33.3 g/dL (31.0-37.0); MCV 85.7 fL (80.0-100.0); MEAN PLATELET VOLUME 10.7 fL (7.4-10.4); MONOCYTES 9.7 % (2-11); NEUTROPHILS 75.6 % (40-80); PLATELET COUNT 130 10x3/uL (130-400); RBC 3.08 10x6/uL (4.00-5.40); RDW 15.7 % (11.5-14.5)
[2019-10-17 06:07] LABS: WBC 16.9 10x3/uL (4.8-10.8)
[2019-10-17 06:18] LABS: APTT 35.4 SECONDS (22.8-39.4); INR 1.3 (0.85-1.17); PROTIME 15.7 SECONDS (11.6-15.0)
[2019-10-17 06:24] LABS: ALBUMIN 2.3 g/dL (3.4-5.0); ALKALINE PHOSPHATASE 57 U/L (46-116); ALT (SGPT) 21 U/L (10-68); BILIRUBIN - TOTAL 0.54 mg/dL (0.2-1.3); CALC OSMOLALITY 273 mosm/kg (275-300); CALCIUM 7.5 mg/dL (8.5-10.1); CHLORIDE - SERUM 106 mmol/L (98-107); CREATININE - SERUM 0.6 mg/dL (0.6-1.3); GLUCOSE 109 mg/dL (74-106); MAGNESIUM - SERUM 2.3 mg/dL (1.8-2.4); PHOSPHOROUS 2.8 mg/dL (2.5-4.9); POTASSIUM - SERUM 3.6 mmol/L (3.5-5.1); PROTEIN - SERUM 5.4 g/dL (6.4-8.2); SODIUM 138 mmol/L (136-145); UREA NITROGEN 5 mg/dL (7-18); eGFR NON AFRICAN AMERICAN > 90 mL/min (90-120)
--- NOTE | 2019-10-17 07:34 | NUR ---
PT TURNED AND MOUTH CARE COMPLETE. CT X 3 MARKED. ASSESSMENT COMPLETE.
--- NOTE | 2019-10-17 09:18 | NUR ---
DR HUDSON HERE. KAMLESH OFF ORDERED.
--- NOTE | 2019-10-17 09:56 | OP ---
PATIENT NAME: ABILIO NELSON MEDICAL RECORD: [id number] :58 [facility] ADMISSION DATE:10/12/19 SURGEON: LUC TREVINO MD DATE OF OPERATION: 10/16/2019 SURGEON: Luc Trevino MD PROCEDURE: Percutaneous removal of intraaortic balloon pump. DIAGNOSIS: Ischemic cardiomyopathy. DESCRIPTION OF PROCEDURE: With the patient supine in intensive care unit and intravenous sedation, heart rate, blood pressure, and pulse oximetry monitor, the sutures holding balloon pump were removed. Balloon pump was removed intact. Pressure was held for 30 minutes. Good Doppler right dorsalis pedis pulse and no apparent complications. TRANSINT:[id number] Voice Confirmation ID: [id number] DOCUMENT ID: [id number] LUC TREVINO MD at 0956 CC: [id number] DICTATION DATE: 10/16/19 1443 TEAM TRUCK DRIVER: 10/16/19 1537 ADM IN [id number] [place] [address]
--- NOTE | 2019-10-17 12:59 | NUR ---
DR CHILEL HERE. PEEP DECREASED TO 7. PS 10. FENTANYL DECREASED BY 1/2 TO EQUAL 50MCG/H.
--- NOTE | 2019-10-17 13:48 | NUR ---
BLOOD DRAWN AND SENT TO LAB FOR K+ ORDERED PER ELECTROLYTE PROTOCOL.
--- NOTE | 2019-10-17 14:11 | NUR ---
KCL 10 MEQ STARTED FOR REPLACEMENT OF K+ OF 3.4. HR 95BPM AT PRESENT AFTER LOPRESSOR. WILL REDRAW IN 4 HRS ORDERED.
--- NOTE | 2019-10-17 14:18 | NUR ---
PEEP DECREASED TO 5 BY RT.
--- NOTE | 2019-10-17 16:15 | NUR ---
1600- SPOKE TO DR CHILEL AND RT. CPAP TRIALS BEGAN.
--- NOTE | 2019-10-17 17:10 | NUR ---
ABG'S CALLED TO DR CHILEL. PT EXTUBATED TO 3LNC. RESTRAINTS DCD.
--- NOTE | 2019-10-17 18:05 | NUR ---
STARTED I.S. PT PULLS ALMOST 500ML.
--- NOTE | 2019-10-17 18:31 | NUR ---
KCL REPLACEMENT UTILIZED PER ELECTROLYTE PROTOCOL. REPORTED TO DR HUDSON THAT PT IS EXTUBATED AND REC'D ORDERS TO KEEP SWAN JOE AND TO KEEP IN BED.
--- NOTE | 2019-10-17 19:35 | NUR ---
REPORT REC'D AND CARE ASSUMED, REC'D PT RESTING QUIETLY IN BED ON O2 @ 3LITERS VIA NC, AWAKE AND ALERT TO PERSON, DISORIENTED TO TIME AND PLACE, REORIENTS EASILY, CM-ST @ 101, BP ELEVATED, PT COMPLAINS OF CHEST HURTING, EXPLANED TO PT SHE HAD OPEN HEART SURGERY AWAITING PAIN PILL TO BECOME AVAILABLE FROM PHARMACY, MIDSTERNAL DRSG CDI, RIJ CYNTHIA DIAZ DRSG CDI WITH BURETROL INFUSING VIA PROXIMAL LIMB, OTHER LIMBS SALINE LOCKED, SUBSTERNAL DRSG CDI TO CT INSERTION SITES AND EXTERNAL P/M WIRES, P/M CONNECTED TO PT BUT NOT IN USE, RIGHT RADIAL HAIM WITH FLEXION BOARD IN USE, LINE LEVELED AND ZEROED WITH RETURN OF APPROPRIATE WAVEFORM, DRSG LOOSE AT SITE, DRSG CHANGED PER PROTOCOL AND BIOPATCH APPLIED, PT TOLERATED WELL, HEART PILLOW PROVIDED AND PROPER SPLINTING TECHNIQUE DEMONSTRATED, PT ASKING FOR RIGHT ARM TO BE PICKED UP AND MOVED EXPLAINED TO PT SHE WAS ABLE TO MOVE HER ARM HERSELF, MEDIASTINAL CT'S TO 2OCM H2O SUCTION, NO AIR LEAK NOTED, LEFT SUBSTERNAL MEERA DRAIN COMPRESSED WITH SEROSANGUINOUS DRAINAGE PRESENT, ABDOMEN ROUND AND SOFT, CRITICORE HENDERSON PRESENT DRAINING CLEAR YELLOW URINE, BILAT TEDS AND SCDS INTACT, PPP, PT DENIES FURTHER NEEDS, SR UP X 2, BED IN LOW POSITION.
--- NOTE | 2019-10-17 19:59 | NUR ---
NORCO 5/325 GIVEN PO FOR PAIN RATING "10" ON 0-10 PAIN SCALE, PT SITTING AT 90 DEGREES NO DIFFICULTY WITH WATER OR PAIN PILL.
--- NOTE | 2019-10-17 21:05 | NUR ---
EVENING MEDS GIVEN AFTER EXPLANATION PROVIDED, PT TOOK WITHOUT DIFFICULTY, VSS, WILL CONT TO MONITOR CLOSELY FOR CHANGES.
--- NOTE | 2019-10-17 22:30 | NUR ---
PT DOZING AT INTERVALS, STATES " I AM SLEEPY BUT SCARED TO SLEEP", PT UNSURE OF WHY SHE IS SCARED TO SLEEP, PT ENCOURAGED TO REST IF SHE COULD TO HELP HER BODY HEAL, EXPLAINED TO PT SHE WAS BEING CONTINUOUSLY MONITORED, PT VERBALIZED UNDERSTANDING.
--- NOTE | 2019-10-17 22:53 | NUR ---
RT AT BEDSIDE, RESP CULTURE COLLECTED AND PT PULLING 500-750 ON IS, O2 SAT 100%.
[2019-10-18] VITALS (29 sets, daily range): BP systolic 105–147; BP diastolic 58–87
--- NOTE | 2019-10-18 | NUR ---
PT REPOSITIONED IN BED, COMPLAINS OF CHEST HURTING "BAD", REASSESSEMENT COMPLETED AT THIS TIME, PT AWAKE, ALERT, AND ORIENTED X 4, BP STABLE, NORCO 5/325 GIVEN PO FOR DISCOMFORT, TOLERATING SIPS OF WATER, DENIES NAUSEA, CALL LIGHT IN REACH, NURSE OUTSIDE DOORWAY.
--- NOTE | 2019-10-18 02:00 | NUR ---
NO CHANGES IN STATUS AT THIS TIME.
--- NOTE | 2019-10-18 03:00 | NUR ---
REASSESSMENT COMPLETED, MIDSTERNAL DRSG CDI, RIJ SALINE LOCKED, RIGHT RADIAL HAIM WITH APPROPRIATE WAVEFORM, SUBSTERNAL DRSG CDI, MEDIASTINAL CT'S TO 20CM H2O SUCTION, NO AIR LEAK NOTED, BS REMAIN HYPOACTIVE, PT REPOSITIONED FOR COMPLIANTS OF BACK HURTING, WILL CONT TO MONITOR FOR CHANGES.
--- NOTE | 2019-10-18 03:50 | NUR ---
RADIOLOGY @ BS FOR AM CXR
--- NOTE | 2019-10-18 04:45 | NUR ---
CHG BATH AND COMPLETE LINEN CHANGE PROVIDED, PT REPOSITIONED UP IN BED AND ONTO BACK, ARMS ELEVATED ON PILLOWS, WARM BLANKET PROVIDED, VSS.
--- NOTE | 2019-10-18 05:55 | NUR ---
UNABLE TO DRAW AM LAB FROM [facility], AM LAB DRAWN FROM [facility]IM AND SENT TO LAB, APPLE JUICE PROVIDED TO PT, PT DENIES FURTHER NEEDS, SR UP X 2, CALL NAZARIO AND COLLEEN WITHIN REACH.
[2019-10-18 06:15] LABS: BASOPHILS 0.1 % (0-2); EOSINOPHILS 2.3 % (0-7); HEMATOCRIT 30.4 % (36.0-48.0); IMMATURE GRANULOCYTES 0.4 % (0-5); LYMPHOCYTES 7.2 % (15-50); MCH 28.4 pg (26.0-34.0); MCHC 32.9 g/dL (31.0-37.0); MCV 86.4 fL (80.0-100.0); MEAN PLATELET VOLUME 10.4 fL (7.4-10.4); MONOCYTES 9.5 % (2-11); NEUTROPHILS 80.5 % (40-80); RBC 3.52 10x6/uL (4.00-5.40); RDW 15.7 % (11.5-14.5); WBC 19.6 10x3/uL (4.8-10.8)
[2019-10-18 06:27] LABS: PLATELET COUNT 199 10x3/uL (130-400)
[2019-10-18 06:35] LABS: ALBUMIN 2.4 g/dL (3.4-5.0); ALKALINE PHOSPHATASE 69 U/L (46-116); ALT (SGPT) 23 U/L (10-68); CALCIUM 8.8 mg/dL (8.5-10.1); CARBON DIOXIDE 27.1 mmol/L (21.0-32.0); CHLORIDE - SERUM 104 mmol/L (98-107); CREATININE - SERUM 0.7 mg/dL (0.6-1.3); GLUCOSE 108 mg/dL (74-106); POTASSIUM - SERUM 3.7 mmol/L (3.5-5.1); PROTEIN - SERUM 6.5 g/dL (6.4-8.2); SODIUM 141 mmol/L (136-145); eGFR NON AFRICAN AMERICAN 90 mL/min (90-120)
[2019-10-18 06:37] LABS: CALC OSMOLALITY 279 mosm/kg (275-300); UREA NITROGEN 8 mg/dL (7-18)
--- NOTE | 2019-10-18 09:17 | NUR ---
DR HUDSON HERE THIS AM. SWAN JOE DCD AND ART LINE RT RADIAL DCD ORDERED. PT DANGLED ON SIDE OF BED. ANTERIOR CT WITH 250CC BLOODY DRAINAGE DUMPS INTO PLEUR-EVAC CHAMBER WHILE DANGLING ON SIDE OF BED. NORCO GIVEN. HR 120. NSR. LOPRESSOR GIVEN. KCL 40MEQ OVER 2 HRS BEGAN ORDERED BY DR HUDSON. PM DISCONECTED.
--- NOTE | 2019-10-18 12:32 | NUR ---
PT UP SIDE OF BED. MEAL TRAY PROVIDED AND PT IS FEEDING SELF. DR MOCK HERE AND DR CHILEL HERE ON ROUNDS.
--- NOTE | 2019-10-18 12:36 | NUR ---
40MEQ KCL RUNNING. PT C/O RT JUGULAR PAIN WITH INFUSION. RATE DECREASED AND PT ADARSH BETTER. PLACED TO DISTAL LINE.
--- NOTE | 2019-10-18 17:37 | NUR ---
PT DANGLING ON SIDE OF BED FOR MEAL TRAY.
--- NOTE | 2019-10-18 19:00 | NUR ---
REPORT RECEIVED AT BEDSIDE, SHIFT ASSESSMENT COMPLETE PER FLOW SHEET, PT AWAKLE AND ALERT, C/O INCISIONAL DISCOMFORT WITH COUGHING, REPOSITIONED FOR COMFORT, TEACHING PROVIDED ON USING HEART PILLOW TO SUPPORT CHEST WHEN COUGHING, MIDSTERNAL DRSG C/D/I, SUBSTERNAL CT x3, TPM WIRES SECURED, MEERA DRAIN COMPRESSED, SUBSTERNAL DRSG C/D/I, RLE HARVEST SITE C/D/I FILBERT GROWER, ROC AND DELMY HUTCHINSON BLE, RT IJ CVL DRSG C/D/I, CALL LIGHT IN REACH, BED ALARM ON, VSS, WILL CONTINUE TO MONITOR
--- NOTE | 2019-10-18 21:00 | NUR ---
MEDS GIVEN PER MAR/ORDERS, NO ACUTE S/S OF DISTRESS, VSS
--- NOTE | 2019-10-18 22:11 | NUR ---
5mEq K+ STAT=RTED PER ORDERS/MAR, RECHECK K+ ORDERS REORDERED
--- NOTE | 2019-10-18 22:30 | NUR ---
PT C/O INCISIONAL PAIN AFTER COUGHING, TEACHING PROVIDED ON USE OF HEART PILLOW TO SUPPORT CHEST, PT GAVE RETURN DEMONSTRATION, PT GIVEN CELL PHONE FROM MANAGER OCCUPATIONAL PER REQUEST, VSS, WILL CONTINUE TO MONITOR
--- NOTE | 2019-10-18 23:00 | NUR ---
REASSESSMENT COMPLETE SEE FLOW SHEET FOR FURTHER, PT AWAKE AND ALERT TALKING ON PHONE, DENIES NEEDS AT THIS TIME, REPOSITIONED FOR COMFORT, VSS, WILL CONTINUE TO MONITOR
[2019-10-19] VITALS (24 sets, daily range): BP systolic 108–145; BP diastolic 66–88
--- NOTE | 2019-10-19 02:55 | NUR ---
5 mEQ K+ INITIATED PER ORDERS/MAR FOR REDRAW K+ OF 4.0
--- NOTE | 2019-10-19 03:00 | NUR ---
REASSESSMENT COMPLETE PER FLOW SHEET, NO ACUTE CHANGES NOTED FROM PRIOR ASSESSMENT, PT RESTING WITH EYES CLOSED PRIOR TO RN WALKING IN ROOM, ALL DRSG'S C/D/I, PT REPOSITIONED FOR COMFORT, VSS, SINUS TACH ON CM, SCD AND DELMY HUTCHINSON BLE, PPP, PT DENIES NEEDS AT THIS TIME, CALL [facility] IN REACH, BED ALARM ON, WILL CONTINUE TO MONITOR
[2019-10-19 05:41] LABS: HEMATOCRIT 30.6 % (36.0-48.0); HEMOGLOBIN 9.9 g/dL (12-16); MCH 28.1 pg (26.0-34.0); MCHC 32.4 g/dL (31.0-37.0); MCV 86.9 fL (80.0-100.0); MEAN PLATELET VOLUME 10.4 fL (7.4-10.4); RBC 3.52 10x6/uL (4.00-5.40); RDW 15.7 % (11.5-14.5)
[2019-10-19 06:05] LABS: ALBUMIN 2.3 g/dL (3.4-5.0); ANION GAP 11.4 mmol/L (8-16); BILIRUBIN - TOTAL 0.87 mg/dL (0.2-1.3); CARBON DIOXIDE 28.7 mmol/L (21.0-32.0); POTASSIUM - SERUM 4.1 mmol/L (3.5-5.1); PROTEIN - SERUM 6.5 g/dL (6.4-8.2)
[2019-10-19 06:08] LABS: CREATININE - SERUM 0.9 mg/dL (0.6-1.3)
--- NOTE | 2019-10-19 07:00 | NUR ---
SHIFT ASSESSMENT COMPLETE. PT AWAKE, SITTING UP IN BED. CHEST TUBES NOTED TO SUCTION. NO AIRLEAK. CRITICANNIE HENDERSON.
--- NOTE | 2019-10-19 07:00 | NUR ---
REPORT RECIEVED. SHIFT ASSESSMENT COMPLETE. PT SUPINE IN BED. ALERT AND ORIENTED. SHEATH NOTED TO RIGHT AND LEFT GROIN SITES. DRESSINGS CLEAN, DRY, AND INTACT. LEFT FOOT COOL TO TOUCH. UNABLE TO PALPATE OR DOPPLER PULSE. RIGHT PEDAL PULSE VERIFIED BY DOPPLER. PT C/O DISCOMFORT IN LOWER ABDOMEN.
--- NOTE | 2019-10-19 08:02 | NUR ---
PT ASSISTED UP TO CHAIR AT BEDSIDE. BREAKFAST TRAY PROVIDED.
--- NOTE | 2019-10-19 12:42 | NUR ---
Nutrition Follow-up: POD 4 CABG. Pt reports poor appetite/PO intake. Agreed to Ensure with meals. Last BM was CHRONOMETER TESTER. Diet: Cardiac Wt: 164.2# (down from 168.6# on 10/15) Labs noted: Glu 112, Alb 2.3 Meds noted: Lasix, KDur, Senokot, Colace -+Ensure with meals -RD following.
--- NOTE | 2019-10-19 13:19 | NUR ---
PT RESTING QUIETLY UP IN CHAIR AT BEDSIDE. HAS HAD A COUPLE OF COUGHING EPISODES CAUSING TACHYCARDIA AND TACHYPNEA.
--- NOTE | 2019-10-19 15:00 | NUR ---
PT HAS CALLED [facility] DESK ASKING TO SPEAK TO HER DOCTOR. DR HUDSON HAS BEEN IN TO SEE PATIENT EARLIER, NOT CURRENTLY ON THE UNIT. SHE IS COMPLAINING FOR HAVING TO BE IN THE CHAIR. SAYS SHE HAS BEEN UP SINCE 4AM WITH EVERYONE COMING IN AND OUT OF HER ROOM. LET HER KNOW THAT BEING UP IN THE CHAIR IS PART OF HER THERAPY. SHE ASKED WHEN SHE CAN GO BACK TO BED. LET HER KNOW SHE CAN GO BACK TO BED AFTER DINNER. PT HUNG UP ON ME. I CALLED CHARGE NURSE TO COME SPEAK WITH PATIENT.
--- NOTE | 2019-10-19 17:02 | EC ---
PATIENT:ABILIO NELSON DATE OF SERVICE: 10/12/19 SEX: F MEDICAL RECORD: [id number] DATE OF : 56 LOCATION:[place] [address] AGE OF PATIENT: 58 ADMISSION DATE: 10/12/19 REFERRING PHYSICIAN: INTERPRETING PHYSICIAN: TOOTIE CHERRY MD ECHOCARDIOGRAM REPORT ECHO CHARGES 4 ECHO COMPLETE Date: 10/12/19 CLINICAL DIAGNOSIS: DYSPNEA ECHOCARDIOGRAPHIC MEASUREMENTS (adult normal given) AC root (d.<3.7cm) 3.0 cm LV Septum d (<1.2 cm> 1.2 cm Valve Excursion 2.0 cm LV Septum (systole) 1.5 cm Left Atria (s.<4.0cm> 4.0 cm LVPW d(<1.2cm) 1.2 cm RV (d.<2.3cm) 2.5 cm LVPW (sytole) 1.7 cm LV diastole(<5.6CM) 4.9 cm MV E-F(>70mm/sec) cm LV systole 3.2 cm LVOT Diameter 1.7 cm MV exc.(>10mm) cm Est.ejection fraction (50-75%) % DOPPLER: LVIT cm/sec A 50.0 cm/sec E 85.0 cm/sec LA cm/sec RVSP 24.0 mmHg LVOT 80.0 cm/sec AOP1/2T m/s Asc. Ao 139 cm/sec RVOT 54.0 cm/sec RA cm/sec PA 78.0 cm/sec AV Gradient Peak 7.7 mmHg AV Mean 4.2 mmHg AV Area 1.2 cm MV Gradient Peak 4.8 mmHg MV Mean 1.5 mmHg MV Area cm COMMENTS: Manager Er: Janis ARRIAGAOE Manager Interventional: 1 Dr. Cherry TAPE# PACS Pericardial Effusion N DATE OF SERVICE: 10/12/2019 ECHOCARDIOGRAM FINDINGS: 1. Left ventricular chamber size is within normal limits. Left ventricular systolic function is mildly reduced at 40%. 2. Left atrium is upper limits of normal at 4.0 cm. Right atrium and right ventricular chamber sizes are within normal limits. 3. Valvular structures have normal structure and motion. ECHOCARDIOGRAM REPORT [id number] ABILIO NELSON 4. Doppler interrogation reveals mild mitral regurgitation, no other valvular insufficiency or stenosis. Pulmonary systolic pressure is normal estimated at 24 mmHg. 5. No evidence of pericardial effusion or left ventricular thrombus. TRANSINT:[id number] Voice Confirmation ID: [id number] DOCUMENT ID: [id number] TOOTIE CHERRY MD at 1702 CC: [id number] DICTATION DATE: 10/12/19 1656 ELECTRICAL AND INSTRUMENT MECHANIC: 10/12/19 1758 ADM IN [place] [id number] [place] [id number]
--- NOTE | 2019-10-19 17:02 | OP ---
PATIENT NAME: ABILIO NELSON MEDICAL RECORD: [id number] :56 [facility] ADMISSION DATE:10/12/19 SURGEON: TOOTIE RENTERIA MD DATE OF OPERATION: 10/13/2019 PROCEDURES: 1. Left heart catheterization. 2. Selective coronary angiography. 3. Left ventriculogram. INDICATION: Non-Q-wave myocardial infarction. PROCEDURE IN DETAIL: After informed consent was obtained and after a detailed description of risks, benefits as well as alternative therapies, the patient elected to proceed with angiogram and heart catheterization. The left femoral area was prepped and draped in normal sterile fashion. Left femoral artery was cannulated via modified Seldinger technique with placement of 5-Slovak sheath. All catheters exchanged through this sheath. FINDINGS: The left ventriculogram was performed in standard 30-degree CHINO view, reveals global hypokinesis, ejection fraction 40%. SELECTIVE CORONARY ANGIOGRAPHY: 1. Left main is with no significant angiographic disease. 2. Left anterior descending is totally occluded in the mid vessel. Distal left anterior descending fills via right to left collaterals. 3. Left circumflex has 90% stenosis in the proximal vessel. 4. Right coronary artery has 90% stenosis in the mid vessel. 5. Left ventriculogram was performed in standard 30-degree CHINO view, reveals global hypokinesis, ejection fraction 40%. OVERALL IMPRESSION: Severe 3 vessel coronary artery disease. Evaluate for bypass surgery. TRANSINT:[id number] Voice Confirmation ID: [id number] DOCUMENT ID: [id number] TOOTIE RENTERIA MD at 1702 CC: [id number] DICTATION DATE: 10/13/19 1226 CLINICAL SUPPORT TECH: 10/13/19 1239 ADM IN [place] [id number] [place] [id number]
--- NOTE | 2019-10-19 17:02 | CN ---
PATIENT NAME:ABILIO AMAYA MEDICAL RECORD: [id number] : 56 LOCATION:[facility] ADMIT DATE: 10/12/19 ACCOUNT: [id number] CONSULTING PHYSICIAN: TOOTIE RENTERIA MD REFERRING PHYSICIAN: LUCAS SILVA MD DATE OF CONSULTATION: 10/12/2019 DIAGNOSES: 1. Non-Q-wave myocardial infarction. 2. Coronary artery disease. 3. Hypertension. 4. Family history of coronary artery disease. HISTORY OF PRESENT ILLNESS: Mrs. Amaya has felt for the past few months of increasing episodes of shortness of breath associated with chest heaviness, especially when she tries to do anything. This has worsened dramatically in the past 3-5 days as well. She had an episode of cocaine use with a friend and had severe shortness of breath and chest heaviness with this presented and has ruled in for a non-Q-wave myocardial infarction. Her EKG is with no acute changes. She has no chest discomfort at this time. PHYSICAL EXAMINATION: CONSTITUTIONAL/GENERAL APPEARANCE: Well nourished, well developed, appears stated age. EYES: Lids and conjunctivae noninjected. No discharge. No pallor. ENT: Lips within normal limit. No cyanosis. No pallor. NECK: Carotid arteries, bilateral normal upstroke. No bruits. No thrills. No jugular venous pressure or distention. CERVICAL LYMPH NODES: Nontender. Nonenlarged. THYROID: Not enlarged. No nodules. CARDIOVASCULAR: Precordial exam, nondisplaced. No heaves or pericardial thrills. Rate and rhythm, regular. Heart sounds, normal S1, normal S2. No S3, no gallop, no rub. Systolic murmur, not heard. Diastolic murmur, not heard. RESPIRATORY: Respiratory effort, unlabored. Normal curvature. No thoracic deformity. No chest wall tenderness. Percussion, resonant. Auscultation, clear. No wheezes, no rales, no rhonchi. ABDOMEN: Soft, nondistended, nontender. No abdominal pain, no vomiting and normal appetite. MUSCULOSKELETAL: No joint tenderness, normal gait, normal tone. SKIN: Warm and dry. OVERALL IMPRESSION: Increasing anginal symptomatology in an escalating fashion, now a non-Q-wave myocardial infarction in conjunction with cocaine use basically failing a stress test from the cocaine, troponin is 5. We will proceed with coronary angiography in the a.m. Further care depends upon the findings of the angiography. TRANSINT:[id number] Voice Confirmation ID: [id number] DOCUMENT ID: [id number] CONSULT REPORT [id number] ABILIO AMAYA, TOOTIE CRUZ at 1702 CC: [id number] DICTATION DATE: 10/12/19 1105 CYCLE DIRECTOR: 10/12/19 1126 ADM IN [place] [id number] [place] [address]
--- NOTE | 2019-10-19 18:13 | NUR ---
PT ASSISTED WITH CHG BATH. ALL NEW LINENS. DRESSING CHANGED TO SUBSTERNAL SITES. ASSISTED TO BED.
--- NOTE | 2019-10-19 19:00 | NUR ---
REPORT RECEIVED AT BEDSIDE, SHIFT ASSESSMENT COMPLETE PER FLOW SHEET, PT AWAKE AND ALERT TALKING ON CELL PHONE, DENIES NEEDS AT THIS TIME, RT IJ CVL C/D/I DRSG CHANGED D/T PT ACCIDENTALY PULLING AT DRSG, STERILE TECHNIQUE USED, PT TOLLERATED WELL WITH NO S/S OF DISTRESS, MIDSTERNAL DRSG C/D/I, SUBSTERNAL CTx3/MEERA DRAIN/TPM WIRES SECURED, MEERA DRAIN COMPRESSED, CRITICORE HENDERSON CATH SECURED WITH CLEAR YELLOW VOID NOTED, RLE HARVEST SITES C/D/I BRISEYDA, BLE SCD AND DELMY HOSE, ALL PPP, SINUS TACH @113bpm ON CM, OTHER VSS, NC @ 2L/MIN, CALL LIGHT IN REACH, BED ALARM ON, NO FURTHER NEEDS AT THIS TIME, WILL CONTINUE TO MONITOR
--- NOTE | 2019-10-19 21:00 | NUR ---
MEDS GIVEN PER MAR/ORDERS, NO S/S OF DISTRESS NOTED, PT C/O INCISIONAL ACHING PAIN, PRN PAIN MED GIVEN PER MAR/ORDERS, LARGE CUP ICE WATER GIVEN PER REQUEST, VSS, NSR ON CM, CALL LIGHT IN REACH, BED ALARM ON, WILL CONTINUE TO MONITOR
--- NOTE | 2019-10-19 23:00 | NUR ---
REASSESSMENT COMPLETE PER FLOW SHEET, NO ACUTE CHANGES FROM PRIOR ASSESSMENT, PT AWAKE AND ALERT WATCHING TV, DENIES NEEDS AT THIS TIME, REPOSITIONED FOR COMFORT, ALL DRSG'S C/D/I, MEERA DRAIN COMPRESSED, CTx3 TO 20cm SUCTION, NO AIR LEAK NOTED, I/S COMPLETED 500-750 ML x10 MUCH ENCOURAGEMENT NEEDED, FLUDDER USED x10, TCDB USING HEART PILLOW TO SUPORT CHEST, VSS, NSR ON CM, SCD AND DELMY HOSE ON BLE, CALL LIGHT IN REACH, BED ALARM ON, WILL CONTINUE TO MONITOR
[2019-10-20] VITALS (25 sets, daily range): BP systolic 108–153; BP diastolic 62–84
--- NOTE | 2019-10-20 01:00 | NUR ---
PT RESTING WITH EYES CLOSED, NO S/S OF DISTRESS NOTED, CALL LIGHT IN REACH, BED ALARM ON, VSS, WILL CONTINUE TO MONITOR
--- NOTE | 2019-10-20 03:00 | NUR ---
REASSESSMENT COMPLETE PER FLOW SHEET, NO ACUTE CHANGES FROM PRIOR ASSESSMENT, PT AAOx4, DENIES NEED, REPOSITIONED FOR COMFORT, ALL DRSG'S C/D/I, PT C/O ACHING INCISIONAL PAIN THAT WAKES PT FROM SLEEP, PAIN MED GIVEN PER JAN/, I/S COMPLETED 500ML x10, MUCH ENCOURAGEMENT NEEDED, FLUDDER AND TCDB COMPLETED, VSS, NSR ON CM, CALL LIGHT IN REACH, BED ALARM ON, WILL CONTINUE TO MONITOR
--- NOTE | 2019-10-20 04:30 | NUR ---
PT ASSISTED TO WHEELCHAIR WITH RNx2 AT SIDE AND RADIOLOGY x2, CT AND HENDERSON SECURED, PLACED ON PORTABLE CM, PT OFF UNIT TO RADIOLOGY TO GET PA/LAT PER ORDERS, PT WEAK BUT ABLE TO AMBULATE WELL TO STAND AND MOVE FOR IMAGING, NO S/S OF ACUTE DISTRESS NOTED, VSS, PT ASSISTED BACK TO UNIT, PLACED IN BEDSIDE CHAIR, LINES AND TUBES POSITIONED, PT SINUS TACH ON CM, OTHER VSS, BEDSIDE TABLE IN REACH, CALL LIGHT IN PT HAND, NO FURTHER NEEDS AT THIS TIME, WILL CONTINUE TO MONITOR
[2019-10-20 05:36] LABS: HEMATOCRIT 30.2 % (36.0-48.0); HEMOGLOBIN 9.8 g/dL (12-16); MCH 27.9 pg (26.0-34.0); MCHC 32.5 g/dL (31.0-37.0); MEAN PLATELET VOLUME 9.8 fL (7.4-10.4); RBC 3.51 10x6/uL (4.00-5.40); RDW 15.7 % (11.5-14.5); WBC 16.3 10x3/uL (4.8-10.8)
[2019-10-20 05:54] LABS: ALBUMIN 2.3 g/dL (3.4-5.0); ALKALINE PHOSPHATASE 86 U/L (46-116); BILIRUBIN - TOTAL 0.79 mg/dL (0.2-1.3); CARBON DIOXIDE 26.2 mmol/L (21.0-32.0); CHLORIDE - SERUM 103 mmol/L (98-107); CREATININE - SERUM 0.7 mg/dL (0.6-1.3); GLUCOSE 98 mg/dL (74-106); POTASSIUM - SERUM 3.7 mmol/L (3.5-5.1); PROTEIN - SERUM 6.4 g/dL (6.4-8.2); SODIUM 139 mmol/L (136-145); eGFR NON AFRICAN AMERICAN 90 mL/min (90-120)
--- NOTE | 2019-10-20 06:00 | NUR ---
PT REFUSES CHG BATH, STATES SHE WOULD LIKE TO HAVE FEMALE RN TO ASSIST, WILL NOTIFY DAY SHIFT RN, GOWN CHANGED, COMPLETE LINEN CHANGE, VSS, WILL CONTINUE TO MONITOR
[2019-10-20 06:02] LABS: ALT (SGPT) 46 U/L (10-68); CALC OSMOLALITY 277 mosm/kg (275-300); UREA NITROGEN 13 mg/dL (7-18)
--- NOTE | 2019-10-20 07:00 | NUR ---
RECIEVED BEDSIDE REPORT ON PATIENT AND ASSUMED CARE. PATIENT ALEART AND ORIENTED X 4, SITTING UP IN BEDSIDE CHAIR, VSS. BBS - CLEAR, DIMINISHED IN BASES. ON RA SPO - 95%. CM - ST RATE 111. CHEST TUBES IN PLACE TO 20 CM H2O SUCTION, NO AIR LEAK DETECTED. MEERA DRAIN COMPRESSED. HENDERSON CATH IN PLACE WITH YELLOW UOP NOTED. RIGHT IJ CVL, NSL, DRESSING C/D/I. HEAD TO TOE ASSESSMENT COMPLETED.
--- NOTE | 2019-10-20 08:00 | NUR ---
PATIENT GIVEN BREAKFAST TRAY. VSS.
--- NOTE | 2019-10-20 08:35 | NUR ---
PATIENT WALKED 90 FT IN HALLWAY WITH PT. BACK TO BED FOR CHEST TUBE REMOVAL. VSS.
--- NOTE | 2019-10-20 09:03 | NUR ---
PATIENT ATE APPROXIMATELY 20% OF BREAKFAST TRAY.
--- NOTE | 2019-10-20 09:49 | NUR ---
CHEST TUBES X 3 AND TPM WIRES REMOVED BY ALICIA HOLDEN, BETADINE OINTMENT AND DRESSING PLACED. HENDERSON CATH REMOVED 150 CC UOP, AND RIGHT IJ CVL REMOVED. DIRECT PRESSURE HELD FOR APPROXIMATELY 2 MINUTES, NO HEMATOMA, 2X2 AND TEGADERM DRESSING APPLIED. VSS. PATIENT TOLERATED WELL.
--- NOTE | 2019-10-20 10:58 | NUR ---
REASSESSMENT COMPLETE. PATIENT AWAKE AND ALERT X 4, TALKING ON TELEPHONE. VSS. IV 20 GA TO LEFT AC X 1 ATTEMPT. POSITIVE BLOOD RETURN AND FLUSHES EASILY. NSL WITH SWAB CAP IN PLACE. NO NEEDS AT THIS TIME.
--- NOTE | 2019-10-20 11:51 | NUR ---
PATIENT UP TO BEDSIDE CHAIR FOR LUNCH. VSS. NO NEEDS AT THIS TIME.
--- NOTE | 2019-10-20 12:37 | NUR ---
PATIENT ATE APPROXIMATELY 50% OF LUNCH AND DRANK ENSURE SHAKE. VSS. NO NEEDS AT THIS TIME.
--- NOTE | 2019-10-20 13:48 | NUR ---
PATIENT SITTING UP IN BEDSIDE CHAIR, VSS. TALKING ON CELL PHONE. NO NEEDS AT THIS TIME.
--- NOTE | 2019-10-20 14:54 | NUR ---
PATIENT ASSISTED TO BATHROOM, VOIDS 10O CC YELLOW UOP, NO BM, EMPTY 30 CC FROM BALKE DRAIN, SEROSANGENOUS. REASSESSMENT COMPLETED. VSS.
--- NOTE | 2019-10-20 15:28 | NUR ---
PATIENT WALKED 180 FT IN HALLWAY WITH PT AND WALKER, TOLERATED WELL ON RA, SPO2 - 95%, HR 120. BACK TO BEDSIDE CHAIR. NO NEEDS AT THIS TIME.
--- NOTE | 2019-10-20 15:38 | NUR ---
DR. MADISON AT ROOM UPDATED AND EXAMINES PATIENT. CONTACTS PHARMACY REGARDING MEDICATION FOR PATIENT C/O VAGINAL IRRITATION FROM HENDERSON CATH.
--- NOTE | 2019-10-20 16:58 | NUR ---
PATIENT SITTING UP EATING DINNER. VSS. DR. [place] AT ROOM UPDATED AND EXAMINES PATIENT.
--- NOTE | 2019-10-20 17:22 | NUR ---
PATIENT ATE APPROXIMATELY 70% OF DINNER. BACK TO BED AFTER DINNER. VSS.
[2019-10-21] VITALS (24 sets, daily range): BP systolic 107–146; BP diastolic 60–84
--- NOTE | 2019-10-21 07:25 | NUR ---
report recieved. patient ambulated from bed to chair partial assist with heart pillow. patient denies needs at this time. room air. vss. no acute distress. chg bath done upon entrance. lungs cta bilat. will continue to monitor. see assessment. see adl's.
--- NOTE | 2019-10-21 08:00 | NUR ---
ANAT STATED HE FORGOT TO PUT URINE OUTPUT IN I&O. STATED I WOULD PUT IT IN FOR HIM.
--- NOTE | 2019-10-21 08:29 | NUR ---
PATIENT AMBULATED FROM CHAIR TO BED BECAUSE SHE WAS TIRED OF SITTING UP. TOLD PATIENT SHE MUST SIT IN CHAIR WHEN EATING BREAKFAST. PATIENT THEN ABMULATED BACK TO CHAIR.
--- NOTE | 2019-10-21 09:03 | NUR ---
patient got up for physical therapy, walked a few steps and said she didnt feel good and demanded to get back into bed. patient stated she will "not continue to walk until she feels like it." blood pressure is 125/75 with hr of 103. no signs of distress but when told she needed to try again she said "i will get up to please you but i might just fall and crack my head for your pleasure." stated that she needed to do physical therapy per dr montalvo and she said she will later today if she feels better. spoke with alessandro lee and texted gwendolyn about situation
[2019-10-21 11:06] LABS: BASOPHILS 0.2 % (0-2); EOSINOPHILS 4.4 % (0-7); HEMATOCRIT 32.5 % (36.0-48.0); HEMOGLOBIN 10.5 g/dL (12-16); IMMATURE GRANULOCYTES 0.6 % (0-5); LYMPHOCYTES 8.9 % (15-50); MCH 27.9 pg (26.0-34.0); MCHC 32.3 g/dL (31.0-37.0); MCV 86.4 fL (80.0-100.0); MEAN PLATELET VOLUME 10.2 fL (7.4-10.4); MONOCYTES 10.4 % (2-11); NEUTROPHILS 75.5 % (40-80); RBC 3.76 10x6/uL (4.00-5.40); RDW 15.8 % (11.5-14.5); WBC 18.8 10x3/uL (4.8-10.8)
[2019-10-21 11:08] LABS: PLATELET COUNT 547 10x3/uL (130-400)
--- NOTE | 2019-10-21 11:17 | TEE ---
PATIENT:ABILIO NELSON MEDICAL RECORD: [id number] LOCATION:[place] [address] AGE OF PATIENT: 59 ADMISSION DATE: 10/12/19 SEX: F REFERRING PHYSICIAN: INTERPRETING PHYSICIAN: TOOTIE CHERRY MD TRANSESOPHAGEAL ECHOCARDIOGRAM Date: 10/15/19 ЕЛЕНА CHARGE Y INDICATIONS: CABG PREMEDICATIONS: PATIENT'S RESPONSE PROCEDURE DOPPLER MEASUREMENTS: LVIT 0 LA 0 PA 0 RA 0 LVOT 72.0 RVOT 0 Asc. Ao 98.0 AV Gradient Peak 3.9 AV Mean 2.1 AV Area 1.2 MV Gradient Peak 0 MV Mean 0 MV Area 0 INTERPRETATION: LVd: 3.7 cm LVs: 2.5 cm LA: 3.1 cm Doppler: 2-D: COLOR FLOW DOPPLER NORMAL SALINE STUDY: MISCELLANOUS: DIAGNOSIS: PLAN: Roll Edge Machine Operator:1 Dr. Cherry Market Researcher: Janis BARFIELD COMMENTS: LIMTED STUDY (2-D,COLOR,DOPPLER) COMPLETE ECHO DONE ON 10/12/19 DATE OF SERVICE: 10/19/2019 PROCEDURE: Transesophageal echo evaluation of valvular structures during bypass surgery. FINDINGS: 1. Left ventricular chamber size is within normal limits. Left ventricular systolic function is mildly reduced at 40%. 2. Left atrium, right atrium, and right ventricular chamber sizes are mildly TRANSESOPHAGEAL ECHOCARDIOGRAM REPORT [id number] ABILIO NELSON dilated. 3. Valvular structures have normal structure and motion. 4. Doppler interrogation reveals only trace mitral regurgitation. No other valvular insufficiency or stenosis. 5. No evidence of pericardial effusion or left ventricular thrombus. TRANSINT:[id number] Voice Confirmation ID: [id number] DOCUMENT ID: [id number] at 1117 CC: [id number] DICTATION DATE: 10/19/19 1031 TITLE COORDINATOR: 10/19/192012 ADM IN [place] [id number] [place] [address]
[2019-10-21 11:25] LABS: ALBUMIN 2.5 g/dL (3.4-5.0); ALKALINE PHOSPHATASE 106 U/L (46-116); ALT (SGPT) 54 U/L (10-68); BILIRUBIN - TOTAL 0.84 mg/dL (0.2-1.3); CALCIUM 8.8 mg/dL (8.5-10.1); CARBON DIOXIDE 25.8 mmol/L (21.0-32.0); CHLORIDE - SERUM 105 mmol/L (98-107); GLUCOSE 100 mg/dL (74-106); SODIUM 140 mmol/L (136-145); eGFR NON AFRICAN AMERICAN > 90 mL/min (90-120)
[2019-10-21 11:27] LABS: CALC OSMOLALITY 277 mosm/kg (275-300); CREATININE - SERUM 0.5 mg/dL (0.6-1.3); POTASSIUM - SERUM 4.6 mmol/L (3.5-5.1); UREA NITROGEN 9 mg/dL (7-18)
--- NOTE | 2019-10-21 11:30 | NUR ---
PATIENT AMBULATED TO RESTROOM BY HERSELF WITH ME AT SIDE. NO BM.
--- NOTE | 2019-10-21 13:15 | NUR ---
Nutrition Follow-up: POD 6 CABG. Overall fair intake. Drinking Ensure. Diet: Cardiac, Ensure TID PO intake: 53% avg x 6 meals Wt: 160# (164.2# on 10/19) Last BM: 10/12 per chart Labs noted: K+ 3.7, Alb 2.3 Meds noted: KDur, Senokot, Colace -Continue current diet/supplement as tolerated. -Encourage PO intake. -RD following.
--- NOTE | 2019-10-21 13:35 | NUR ---
PATIENT ABMULATING WITH PHYSICAL THEARPY
--- NOTE | 2019-10-21 14:00 | NUR ---
MEERA DRAIN REMOVED PER DR PFEIFFER
--- NOTE | 2019-10-21 14:11 | NUR ---
30 ML DRAINED FROM MEERA DRAIN
--- NOTE | 2019-10-21 14:14 | NUR ---
PATIENT AMBULATED FROM BED TO BATHROOM.
--- NOTE | 2019-10-21 14:19 | NUR ---
PATIENT BACK IN BED.
--- NOTE | 2019-10-21 18:44 | NUR ---
ORAL CARE DONE WITH PERIDEX
--- NOTE | 2019-10-21 19:14 | NUR ---
REPORT RECEIVED, SHIFT ASSESSMENT COMPLETED PER FLOW SHEET, SEE FOR DETAILS. 2037 SCHEDULED MEDS GIVEN. 2199 DENIES NEEDS, WILL CONTINUE TO MONITOR. 2314 REASSESSMENT COMPLETED PER FLOW SHEET, SEE FOR DETAILS. 0102 BLANKET PROVIDED PER PATIENT'S REQUEST. DENIES OTHER NEEDS. CALL LIGHT WITHIN REACH. 0304 REASSESSMENT COMPLETED PER FLOW SHEET, SEE FOR DETAILS.
[2019-10-22] VITALS (14 sets, daily range): BP systolic 95–127; BP diastolic 53–88
--- NOTE | 2019-10-22 05:00 | NUR ---
RESTING, DENIES NEEDS. WILL CONTINUE TO MONITOR.
[2019-10-23] VITALS: BP 126/73
[2019-10-23 04:00] VITALS: BP 129/74
[2019-10-23 07:00] VITALS: BP 101/51
[2019-10-23] MEDS ORDERED: PLAVIX75 MG PO (09:23)
[2019-10-23] MEDS ORDERED: ASPIRIN EC81 M1 PO (09:24)
[2019-10-23] MEDS ORDERED: METOPROLOL TART50 MG PO (09:24)
[2019-10-23] MEDS ORDERED: PRAVACHOL20 MG PO (09:24)
[2019-10-23] MEDS ORDERED: COLACE100 MG PO (09:25)
[2019-10-23] MEDS ORDERED: HYDROCODON-ACE1 EA10 PO ×2 (09:27→09:30)
--- NOTE | 2019-10-23 10:11 | NUR ---
NUTRITION F/U PT UP TO CHAIR. REPORTS 100% INTAKE BREAKFAST THIS AM. WILL CONTINUE TO PROVIDE AHA DIET, MONITOR PO INTAKE. RD FOLLOWING
--- NOTE | 2019-10-23 13:47 | NUR ---
0730-RECIEVD AWAKE AND ALERT-TALKING ON TELEPHONE-SR ON MONITOR 0900-REMOVED L AC IV TIP INTACT 929-REMOVED MEDIASTINAL CHEST DRG -JOE IN PLACE AND WELL ADHERED-R CALF INCISIONS WELL ADHERED-TEDS OFF -PT STATED NEED BREAK FROM THEM 944-DR BROWER AT BEDSIDE-SPOKE WITH PT AND ADDRESSED NEED FOR SMOKING CESSATION-PT STATED CURRENT SITUATION SCARED HER AND PLAN IS COLD TURKEY-DR BROWER-STRESSED TO CALL FAMILY PHYSICIAN FOR AID-REVIEWED DIET RESTRICTIONS AND REVIEWED WITH PICTURES APPROPRIATE FOODS TO EAT-PT TOOK NOTES 1030-CV SERVICES AT BEDSIDE-SPOKE WITH PT REGARDING FOLLOW UP AND PRESCRIPTION MEDICATION-SELF CARE AND SIGNS TO LOOK FOR AND NUMBERS TO CALL 1045-PT RELEASED IN CARE OF COUSIN TO HOUSE -STATED WILL BE WITH HER UNTIL SATURDAY WHEN DAUGHTER ARRIVES-STRESSED TO COUSIN-NEEDS TO BE WITHIN REACH WHEN TAKING FIRST SHOWER -DISCHARGED VIA WHEELCHAIR
--- NOTE | 2019-10-23 14:31 | MORECARE ---
CASE MANAGEMENT DISCHARGE SUMMARY PATIENT: ABILIO AMAYA UNIT: [id number] ADM DATE: 10/12/19 AGE: 59 : 56 SEX: F ROOM/BED: D[facility] AUTHOR: PANTERA,DOC PHYSICIAN: REFERRING PHYSICIAN: LUCAS SILVA MD DATE OF SERVICE: 10/23/19 Discharge Plan Patient Name: ABILIO AMAYA Facility: [facility]:[place] : 1960 Planned Disposition: Home or Self Care Anticipated Discharge Date: 10/23/19 Discharge Date: 10/23/2019 Expected LOS: 11 Initial Reviewer: [email or web address] Initial Review Date: 10/12/2019 Generated: 10/23/19 3:30 pm DCP- Discharge Planning Updated by [email or web address]: Surekha Hollis on 10/13/19 4:[address] CM spoke with patient and had requested a letter sent to her son Jermaine Amaya d/t her suppose to fly out on Saturday to be with him for the Holidays. Patient will not be able to fly d/t to medical condition. CM sent letter and a copy of letter placed in chart. CM will continue to follow and assist as needed with discharge planning / needs DCP- Discharge Planning Updated by [email or web address]: Surekha Hollis on 10/12/19 6:[address] Patient Name: ABILIO AMAYA Admission Status: Elective Accout number: [id number] Admission Date: 10-12-2019 : 1960 Admission Diagnosis: Attending: LUCAS SILVA Current LOS: 1 Anticipated DC Date: Planned Disposition: Home or Self Care Primary Insurance: [facility] [employer] Discharge Planning Comments: CM met with patient to complete initial dc planning assessment. CM educated patient on the CM role and verbal consent given by patient to complete assessment. Patient lives at home alone where she is independent with her care. At discharge patient plans to return home and feels this is a safe discharge. CM discussed availability of home health, rehab services, and medical equipment. Patient denied known discharge needs at this time. CM will continue to follow and will assist as needed with dc plans/needs. Senior Cytogenetic Technologist: Surekha Hollis DCPIA - Discharge Planning Initial Assessment Updated by [id number]: Surekha Hollis on 10/12/19 6:59 pm * Is the patient Alert and Oriented? Yes * How many steps to enter\exit or inside your home? * PCP Garret Winter * Pharmacy [facility] * Preadmission Environment Home with Family * ADLs Independent * Other Equipment cane, walker, BSC * List name and contact numbers for known caregivers / representatives who currently or will assist patient after discharge: Jermaine Monsalve - son - [phone] Jermaine Amaya - son - [phone] * Verbal permission to speak to the caregivers and representatives has been obtained from the patient. Yes * Community resources currently utilized None * Additional services required to return to the preadmission environment? No * Can the patient safely return to the preadmission environment? Yes * Has this patient been hospitalized within the prior 30 days at any hospital? No Coverage Notice Reviewer: [id number] - Surekha Hollis Notice Issued Date-Time: 10/22/2019 15:17 Notice Type: IM Discharge Notice Notice Delivered To: Patient Relationship to Patient: Dermatologist Managing Partner Name: Delivery Method: HAND - Hand Delivered Niurka Days: Prior Verbal Notification: Recipient Understood Notice: Yes Recipient Signature: Yes Med Rec Note Co-signed by Attending: Coverage Notice Comment: Last DP export: 10/13/19 4:58 Patient Name: ABILIO AMAYA Page [id number] at 1431 All edits/amendments must be made on the electronic document DICTATION DATE: 10/23/19 143 HAND ETCHER HELPER: JABIER 10/23/19 1430 RPT#: [id number] DC DATE:10/23/19 STATUS: DIS IN [facility] [address] [place] [address] END OF REPORT
[2019-10-26 17:08] LABS: AEROBE ID Final report (())
[2019-10-28 19:08] LABS: AEROBE ID Final report (())
== END 2019-10-23 14:00 | disposition home or self-care (01) | DRG 233 ==
LOC: D.ER 06:48 → D.CVICU 07:46 → D.ER 08:15 → D.CVICU 10-23 14:00
PROVIDERS: Family Medicine; Internal Medicine Interventional Cardiology; Internal Medicine Pulmonary Disease; Thoracic Surgery (Cardiothoracic Vascular Surgery); ADMIT Family Medicine; ATTEND Family Medicine
PROC: B2151ZZ Fluoroscopy of Left Heart using Low Osmolar Contrast (ICD-10-PCS; 2019-10-13)
PROC: 4A023N7 Measurement of Cardiac Sampling and Pressure, Left Heart, Percutaneous Approach (ICD-10-PCS; 2019-10-13)
PROC: B2111ZZ Fluoroscopy of Multiple Coronary Arteries using Low Osmolar Contrast (ICD-10-PCS; principal; 2019-10-13 09:00)
PROC: 02100A9 Bypass Coronary Artery, One Artery from Left Internal Mammary with Autologous Arterial Tissue, Open Approach (ICD-10-PCS; 2019-10-15)
PROC: 021109W Bypass Coronary Artery, Two Arteries from Aorta with Autologous Venous Tissue, Open Approach (ICD-10-PCS; 2019-10-15)
DX: I21.4 Non-ST elevation (NSTEMI) myocardial infarction (principal); I50.21 Acute systolic (congestive) heart failure; J96.01 Acute respiratory failure with hypoxia; F17.203 Nicotine dependence unspecified, with withdrawal; E87.0 Hyperosmolality and hypernatremia; T81.719A Complication of unspecified artery following a procedure, not elsewhere classified, initial encounter; D62 Acute posthemorrhagic anemia; F12.90 Cannabis use, unspecified, uncomplicated; K21.9 Gastro-esophageal reflux disease without esophagitis; E87.6 Hypokalemia; I25.10 Atherosclerotic heart disease of native coronary artery without angina pectoris; E83.42 Hypomagnesemia; I11.0 Hypertensive heart disease with heart failure; F14.10 Cocaine abuse, uncomplicated

== ENCOUNTER → 2019-11-04 12:30 | Outpatient (CLI) | payer MEDICARE ==
[2019-10-13 16:39] VITALS: BMI 30.2
[~2019-11-04 12:30] MED LIST: ASPIRIN EC81 M1 PO; ASPIRIN325 MG PO; COLACE100 MG PO; EFFER-K 25 MEQ25 MEQ PO; ELAVIL25 MG PO; HYDROCHLOROTHIA25 MG PO; HYDROCODON-ACE1 EA10 PO; IBUPROFEN800 MG PO; METOPROLOL TART50 MG PO; PLAVIX75 MG PO; PRAVACHOL20 MG PO; PROTONIX40 MG PO
[2019-11-04 12:53] LABS: BASOPHILS 0.2 % (0-2); EOSINOPHILS 7.6 % (0-7); HEMATOCRIT 36.4 % (36.0-48.0); HEMOGLOBIN 11.5 g/dL (12-16); IMMATURE GRANULOCYTES 0.1 % (0-5); MCH 27.7 pg (26.0-34.0); MCHC 31.6 g/dL (31.0-37.0); MCV 87.7 fL (80.0-100.0); MEAN PLATELET VOLUME 8.9 fL (7.4-10.4); MONOCYTES 7.5 % (2-11); NEUTROPHILS 62.6 % (40-80); PLATELET COUNT 549 10x3/uL (130-400); RBC 4.15 10x6/uL (4.00-5.40); RDW 16.1 % (11.5-14.5); WBC 8.3 10x3/uL (4.8-10.8)
[2019-11-04 13:13] LABS: CALC OSMOLALITY 281 mosm/kg (275-300); CALCIUM 9.3 mg/dL (8.5-10.1); CARBON DIOXIDE 25.6 mmol/L (21.0-32.0); CHLORIDE - SERUM 106 mmol/L (98-107); CREATININE - SERUM 0.7 mg/dL (0.6-1.3); GLUCOSE 100 mg/dL (74-106); SODIUM 142 mmol/L (136-145); UREA NITROGEN 10 mg/dL (7-18); eGFR NON AFRICAN AMERICAN 90 mL/min (90-120)
== END | disposition home or self-care (01) ==
LOC: D.LAB 12:30
PROVIDERS: ATTEND Thoracic Surgery (Cardiothoracic Vascular Surgery)
DX: Z09 Encounter for follow-up examination after completed treatment for conditions other than malignant neoplasm (principal)

== ENCOUNTER → 2019-12-02 10:32 | Outpatient (CLI) | payer MEDICARE, MEDICAID ==
[2019-10-13 16:39] VITALS: BMI 30.2
== END | disposition home or self-care (01) ==
LOC: D.RAD 10:32
PROVIDERS: ATTEND Thoracic Surgery (Cardiothoracic Vascular Surgery)
DX: Z95.1 Presence of aortocoronary bypass graft (principal)